=== PATIENT | female | born 1950 | race Caucasian/White ===

== ENCOUNTER 2022-03-30 18:09 | Inpatient (IN) | payer MEDICARE, OTHER ==
[~2022-03-30] VITALS: Ht 157.5 cm; Wt 71.0 kg
[2022-03-30 20:52] LABS: Hematocrit 41.5 % (36.0-46.0); Hemoglobin 14.2 g/dL (12.2-16.2); Mean Corpuscular Hemoglobin 32.8 pg (28.0-32.0); Mean Corpuscular Hgb Conc. 34.2 g/dL (32.0-36.0); Mean Corpuscular Volume 95.8 fL (80.0-100.0); Red Blood Cells 4.33 10^6/uL (4.0-5.20); Red Cell Distribution Width 12.8 % (11.8-14.3)
[2022-03-30 20:58] LABS: INR 1.14 (0.9-1.15); Partial Thromboplastin Time 29.1 sec (24.6-33.4)
[2022-03-30 20:59] LABS: White Blood Cell 37.2 10^3/uL (4.4-10.8)
[2022-03-30 21:01] LABS: Basophils % (manual) 0 (0.0-2.0); Blast Cells 0; Eosinophils % (manual) 0 (0-7); Metamyelocytes % 0; Myelocytes % 0; Promyelocytes % 0; Reactive Lymphocytes 0
[2022-03-30 21:03] LABS: Albumin 2.7 g/dL (3.4-5.0); Calcium 9.3 mg/dL (8.5-10.1); Potassium 3.3 mmol/L (3.5-5.1)
[2022-03-30 21:05] LABS: BUN/Creatinine Ratio 13.8
[2022-03-30 21:08] LABS: Bilirubin, Total 0.9 mg/dL (0.2-1.0); Total Protein 8.4 g/dL (6.4-8.2)
[2022-03-30 21:27] LABS: Band Neutrophils % (manual) 26; Lymphocytes % (manual) 4 (10.0-50.0); Monocytes % (manual) 10 (0-12)
[2022-03-30] MEDS ORDERED: VANCOMYCIN 1GM/250ML 250 ML IV ONE (21:45)
[2022-03-30] MEDS ORDERED: LACTATED RINGER'S 2,000 ML IV ONE (21:45)
[2022-03-30] MEDS ORDERED: PIPERACILLIN-TAZOB 3.375GM 100 ML IV ONE (22:15)
[2022-03-30] MEDS ORDERED: ACETAMINOPHEN 325 MG TAB PO ONE (22:15)
[2022-03-31 00:21] LABS: Urine Bacteria NONE SEEN /hpf (None Seen); Urine Blood Negative /uL (Negative); Urine Hyaline Cast FEW /lpf (0 - 2); Urine Mucus FEW (None Seen); Urine Specific Gravity 1.031 (1.001-1.035); Urine WBC 2 /hpf (0 - 5)
[2022-03-31] MEDS ORDERED: POTASSIUM CHL 20 Meq TABLET PO ONE (02:30)
[2022-03-31 03:00] LABS: BUN/Creatinine Ratio 13.2; Calcium 8.7 mg/dL (8.5-10.1); Potassium 3.6 mmol/L (3.5-5.1)
[2022-03-31] MEDS ORDERED: MORPHINE SULFATE INJ 2 MG/ml SYRG IV ONE (03:30)
[2022-03-31] MEDS ORDERED: ONDANSETRON HCL 4 MG/2 ML VIAL IM ONE (03:30)
[2022-03-31] MEDS ORDERED: HYDROmorphone HCL 2 MG/ML VL/or syr IV ONE (03:45)
[2022-03-31] MEDS ORDERED: ACETAMINOPHEN 325 MG TAB PO PRN (04:30)
[2022-03-31] MEDS ORDERED: cloNIDine HCL 0.1 MG TAB PO PRN (04:30)
[2022-03-31] MEDS ORDERED: ONDANSETRON HCL 4 MG/2 ML VIAL IV PRN (04:30)
[2022-03-31 09:00] VITALS: BP 148/73
[2022-03-31] MEDS: PANTOPRAZOLE 40 MG TAB PO SCH (09:49)
[2022-03-31] MEDS: ENOXAPARIN SOD 40 MG/0.4 ML SYRINGE SC SCH (09:50)
[2022-03-31] MEDS: ATENOLOL 50 MG TAB PO SCH ×2 (09:50→21:49)
[2022-03-31] MEDS: cefTRIAXone 1GM/50ML D5W 50 ML IV SCH (09:54)
[2022-03-31 13:00] VITALS: BP 117/67
[2022-03-31 17:00] VITALS: BP 127/75
[2022-03-31 21:30] VITALS: BP 148/71
[2022-03-31] MEDS: TEMAZEPAM 15 MG CAP PO PRN (21:49)
[2022-04-01 04:00] VITALS: BP 144/68
[2022-04-01 05:48] LABS: Basophils # (auto) 0.1 10 ^3/uL (0-0.2); Basophils % (auto) 0.3 % (0.0-2.0); Eosinophils # (auto) 0 10 ^3/uL (0-0.8); Eosinophils % (auto) 0.2 % (0.0-7.0); Hematocrit 36.4 % (36.0-46.0); Hemoglobin 12.5 g/dL (12.2-16.2); Lymphocytes # (auto) 2.4 10 ^3/uL (0.4-5.4); Lymphocytes % (auto) 10.5 % (10.0-50.0); Mean Corpuscular Hemoglobin 33.2 pg (28.0-32.0); Mean Corpuscular Hgb Conc. 34.3 g/dL (32.0-36.0); Mean Corpuscular Volume 96.7 fL (80.0-100.0); Monocytes % (auto) 8.6 % (0.0-12.0); Neutrophils # (auto) 18.6 10 ^3/uL (1.6-8.6); Neutrophils % (auto) 80.4 % (37.0-80.0); Red Blood Cells 3.76 10^6/uL (4.0-5.20); Red Cell Distribution Width 12.8 % (11.8-14.3); White Blood Cell 23.2 10^3/uL (4.4-10.8)
[2022-04-01] MEDS: cefTRIAXone 1GM/50ML D5W 50 ML IV SCH (08:27)
[2022-04-01] MEDS: ENOXAPARIN SOD 40 MG/0.4 ML SYRINGE SC SCH (08:28)
[2022-04-01] MEDS: ATENOLOL 50 MG TAB PO SCH ×2 (08:28→21:07)
[2022-04-01] MEDS: PANTOPRAZOLE 40 MG TAB PO SCH (08:37)
[2022-04-01 09:00] VITALS: BP 145/80
[2022-04-01] MEDS: HYDROcodone-ACET 5/325MG TAB PO PRN ×2 (13:14→21:10)
[2022-04-01 14:00] VITALS: BP 146/65
[2022-04-01 14:16] VITALS: BP 146/65
[2022-04-01] MEDS ORDERED: LORazepam 2MG/ML-1ML VIAL IV PRN (22:15)
[2022-04-01 23:16] VITALS: BP 148/67
[2022-04-02] MEDS: TEMAZEPAM 15 MG CAP PO PRN (01:02)
[2022-04-02 04:41] LABS: Free T4 (Free Thyroxine) 1.15 ng/dL (0.89-1.76)
[2022-04-02 04:42] LABS: Folate (Folic Acid) 10.32 ng/mL (5.38-24)
[2022-04-02 06:21] VITALS: BP 166/74
[2022-04-02] MEDS: ATENOLOL 50 MG TAB PO SCH ×2 (08:26→21:28)
[2022-04-02] MEDS: PANTOPRAZOLE 40 MG TAB PO SCH (08:26)
[2022-04-02] MEDS: ENOXAPARIN SOD 40 MG/0.4 ML SYRINGE SC SCH (08:27)
[2022-04-02] MEDS: cefTRIAXone 1GM/50ML D5W 50 ML IV SCH ×2 (08:27→16:58)
[2022-04-02 09:00] VITALS: BP 147/67
[2022-04-02 13:00] VITALS: BP 156/69
[2022-04-02 15:58] LABS: Basophils # (auto) 0 10 ^3/uL (0-0.2); Basophils % (auto) 0.3 % (0.0-2.0); Eosinophils # (auto) 0.2 10 ^3/uL (0-0.8); Eosinophils % (auto) 1.5 % (0.0-7.0); Hematocrit 37.8 % (36.0-46.0); Hemoglobin 12.7 g/dL (12.2-16.2); Lymphocytes # (auto) 2.2 10 ^3/uL (0.4-5.4); Lymphocytes % (auto) 18.6 % (10.0-50.0); Mean Corpuscular Hemoglobin 32.4 pg (28.0-32.0); Mean Corpuscular Hgb Conc. 33.6 g/dL (32.0-36.0); Mean Corpuscular Volume 96.4 fL (80.0-100.0); Monocytes # (auto) 1.1 10 ^3/uL (0-1.3); Monocytes % (auto) 9.5 % (0.0-12.0); Neutrophils # (auto) 8.3 10 ^3/uL (1.6-8.6); Neutrophils % (auto) 70.1 % (37.0-80.0); Red Blood Cells 3.92 10^6/uL (4.0-5.20); Red Cell Distribution Width 12.8 % (11.8-14.3); White Blood Cell 11.8 10^3/uL (4.4-10.8)
[2022-04-02 16:16] LABS: Albumin 2.1 g/dL (3.4-5.0); Calcium 8.4 mg/dL (8.5-10.1); Potassium 3.9 mmol/L (3.5-5.1)
[2022-04-02 16:19] LABS: BUN/Creatinine Ratio 14.7
[2022-04-02 16:21] LABS: Bilirubin, Total 0.5 mg/dL (0.2-1.0); Total Protein 7.5 g/dL (6.4-8.2)
[2022-04-02 16:36] VITALS: BP 153/67
[2022-04-02] MEDS: HYDROcodone-ACET 5/325MG TAB PO PRN (16:56)
[2022-04-02 22:00] VITALS: BP 150/68
[2022-04-03] MEDS: HYDROcodone-ACET 5/325MG TAB PO PRN (00:43)
[2022-04-03 05:00] VITALS: BP 141/75
[2022-04-03 08:41] VITALS: BP 183/115
[2022-04-03] MEDS: PANTOPRAZOLE 40 MG TAB PO SCH (10:00)
[2022-04-03] MEDS: ENOXAPARIN SOD 40 MG/0.4 ML SYRINGE SC SCH (10:00)
[2022-04-03] MEDS: ATENOLOL 50 MG TAB PO SCH (10:00)
[2022-04-03] MEDS ORDERED: ATE50T PO (10:37)
[2022-04-03] MEDS ORDERED: HYDR-4902 PO (10:37)
[2022-04-03 11:05] VITALS: BP 151/77
== END 2022-04-03 12:00 | disposition home or self-care (01) | DRG 124 ==
LOC: ER 18:09 → EDBD 18:09 → OVERFLOW 03-31 04:18 → WEST WING 03-31 08:20
PROVIDERS: ADMIT Nurse Practitioner; ATTEND Internal Medicine
DX: S02.32XA Fracture of orbital floor, left side, initial encounter for closed fracture (principal); G93.41 Metabolic encephalopathy; W18.39XA Other fall on same level, initial encounter; S00.12XA Contusion of left eyelid and periocular area, initial encounter; I10 Essential (primary) hypertension; E87.6 Hypokalemia; D72.829 Elevated white blood cell count, unspecified; S00.03XA Contusion of scalp, initial encounter; Z20.822 Contact with and (suspected) exposure to COVID-19; D64.9 Anemia, unspecified; Y93.89 Activity, other specified; Y92.89 Other specified places as the place of occurrence of the external cause; Y99.8 Other external cause status
CPT/HCPCS: 36415; 70450; 70486; 70551; 71045; 72125; 80048; 80053; 81001; 82550; 82607; 82746; 83605; 83880; 84439; 84443; 84484; 85007; 85025; 85027; 85610; 85730; 87040; 87426; 87804; 93005; 95819; 96361; 96365; 96366; 96368; 96372; 96375; 97116; 97530; 99291; G0378; J0696; J2405; J2543

== ENCOUNTER 2022-05-07 07:24 | Inpatient (IN) | payer OTHER ==
[~2022-05-07] VITALS: Ht 157.5 cm; Wt 67.5 kg
[~2022-05-07 07:24] MED LIST: ATE50T PO; HYDR-4902 PO
[2022-05-07 08:32] LABS: Urine Bacteria FEW /hpf (None Seen); Urine Blood Negative /uL (Negative); Urine Mucus FEW (None Seen); Urine Specific Gravity 1.016 (1.001-1.035); Urine WBC 82 /hpf (0 - 5)
[2022-05-07 08:52] LABS: Basophils # (auto) 0 10 ^3/uL (0-0.2); Basophils % (auto) 0.2 % (0.0-2.0); Eosinophils # (auto) 0 10 ^3/uL (0-0.8); Hematocrit 42.8 % (36.0-46.0); Hemoglobin 14.8 g/dL (12.2-16.2); Lymphocytes # (auto) 1.2 10 ^3/uL (0.4-5.4); Lymphocytes % (auto) 8.8 % (10.0-50.0); Mean Corpuscular Hemoglobin 33.3 pg (28.0-32.0); Mean Corpuscular Hgb Conc. 34.5 g/dL (32.0-36.0); Mean Corpuscular Volume 96.6 fL (80.0-100.0); Monocytes # (auto) 0.7 10 ^3/uL (0-1.3); Monocytes % (auto) 5.4 % (0.0-12.0); Neutrophils # (auto) 11.6 10 ^3/uL (1.6-8.6); Neutrophils % (auto) 85.6 % (37.0-80.0); Red Blood Cells 4.43 10^6/uL (4.0-5.20); Red Cell Distribution Width 13.4 % (11.8-14.3); White Blood Cell 13.5 10^3/uL (4.4-10.8)
[2022-05-07 09:22] LABS: Albumin 3.7 g/dL (3.4-5.0); BUN/Creatinine Ratio 17.2; Calcium 9.4 mg/dL (8.5-10.1); Potassium 3.8 mmol/L (3.5-5.1)
[2022-05-07 09:24] LABS: Bilirubin, Total 3.7 mg/dL (0.2-1.0); Total Protein 8.2 g/dL (6.4-8.2)
[2022-05-07] MEDS ORDERED: METOCLOPRAMIDE HCL 5MG/ml INJ 2ml VIAL IV ONE (10:45)
[2022-05-07] MEDS ORDERED: SODIUM CHLORIDE 0.9% 1,000 ML IV ONE (10:45)
[2022-05-07] MEDS ORDERED: KETOROLAC TROMETH 30 MG/ML 1ML VIAL IV ONE (10:45)
[2022-05-07 11:27] LABS: Magnesium 2.1 mg/dL (1.6-2.6)
[2022-05-07] MEDS ORDERED: cefTRIAXone 1GM/50ML D5W 50 ML IV ONE (12:00)
[2022-05-07] MEDS ORDERED: SODIUM CHLORIDE 0.9% 2,000 ML IV ONE (16:00)
[2022-05-08] MEDS: SODIUM CHLORIDE 0.9% 1,000 ML IV SCH ×4 (00:20→22:00)
[2022-05-08] MEDS: ATENOLOL 50 MG TAB PO SCH ×3 (00:20→21:13)
[2022-05-08] MEDS: METOCLOPRAMIDE HCL 5MG/ml INJ 2ml VIAL IV SCH ×4 (00:20→21:12)
[2022-05-08] MEDS: KETOROLAC TROMETH 30 MG/ML 1ML VIAL IV PRN ×3 (00:20→23:47)
[2022-05-08 06:13] LABS: Basophils # (auto) 0 10 ^3/uL (0-0.2); Basophils % (auto) 0.2 % (0.0-2.0); Eosinophils # (auto) 0 10 ^3/uL (0-0.8); Hematocrit 39.2 % (36.0-46.0); Hemoglobin 13.2 g/dL (12.2-16.2); Lymphocytes # (auto) 1.4 10 ^3/uL (0.4-5.4); Lymphocytes % (auto) 7.3 % (10.0-50.0); Mean Corpuscular Hemoglobin 32.7 pg (28.0-32.0); Mean Corpuscular Hgb Conc. 33.7 g/dL (32.0-36.0); Mean Corpuscular Volume 97.2 fL (80.0-100.0); Monocytes # (auto) 1.3 10 ^3/uL (0-1.3); Monocytes % (auto) 6.9 % (0.0-12.0); Neutrophils # (auto) 15.9 10 ^3/uL (1.6-8.6); Neutrophils % (auto) 85.6 % (37.0-80.0); Red Blood Cells 4.03 10^6/uL (4.0-5.20); Red Cell Distribution Width 13.6 % (11.8-14.3); White Blood Cell 18.6 10^3/uL (4.4-10.8)
[2022-05-08 06:32] LABS: BUN/Creatinine Ratio 26.6; Calcium 8.4 mg/dL (8.5-10.1); Potassium 3.6 mmol/L (3.5-5.1)
[2022-05-08 06:34] LABS: Bilirubin, Total 2.3 mg/dL (0.2-1.0); Total Protein 6.9 g/dL (6.4-8.2)
[2022-05-08] MEDS: ENOXAPARIN SOD 40 MG/0.4 ML SYRINGE SC SCH (10:12)
[2022-05-08] MEDS: cefTRIAXone 1GM/50ML D5W 50 ML IV SCH (10:12)
[2022-05-08] MEDS: hydrALAZINE HCL 20 MG/ML VL IV PRN (14:49)
[2022-05-08 15:37] VITALS: BP 147/72
[2022-05-08 17:00] VITALS: BP 148/72
[2022-05-08] MEDS: ACETAMINOPHEN 325 MG TAB PO PRN (18:45)
[2022-05-08] MEDS ORDERED: FAMO40TA7 PO (18:47)
[2022-05-08 22:00] VITALS: BP 167/88
[2022-05-09] MEDS: ACETAMINOPHEN 325 MG TAB PO PRN (03:23)
[2022-05-09] MEDS: hydrALAZINE HCL 20 MG/ML VL IV PRN (04:56)
[2022-05-09 05:00] VITALS: BP 170/72
[2022-05-09] MEDS: KETOROLAC TROMETH 30 MG/ML 1ML VIAL IV PRN ×2 (05:53→22:12)
[2022-05-09] MEDS: METOCLOPRAMIDE HCL 5MG/ml INJ 2ml VIAL IV SCH (05:53)
[2022-05-09 06:50] VITALS: BP 140/65
[2022-05-09 07:11] LABS: Basophils # (auto) 0 10 ^3/uL (0-0.2); Basophils % (auto) 0.2 % (0.0-2.0); Eosinophils # (auto) 0 10 ^3/uL (0-0.8); Eosinophils % (auto) 0.1 % (0.0-7.0); Hematocrit 37.3 % (36.0-46.0); Hemoglobin 12.8 g/dL (12.2-16.2); Lymphocytes # (auto) 1.9 10 ^3/uL (0.4-5.4); Mean Corpuscular Hemoglobin 33.3 pg (28.0-32.0); Mean Corpuscular Hgb Conc. 34.3 g/dL (32.0-36.0); Mean Corpuscular Volume 97.2 fL (80.0-100.0); Monocytes # (auto) 1.2 10 ^3/uL (0-1.3); Monocytes % (auto) 6.6 % (0.0-12.0); Neutrophils # (auto) 15.7 10 ^3/uL (1.6-8.6); Neutrophils % (auto) 83.1 % (37.0-80.0); Red Blood Cells 3.83 10^6/uL (4.0-5.20); Red Cell Distribution Width 13.6 % (11.8-14.3); White Blood Cell 18.9 10^3/uL (4.4-10.8)
[2022-05-09 07:13] LABS: Potassium 3.3 mmol/L (3.5-5.1)
[2022-05-09 07:17] LABS: Albumin 2.6 g/dL (3.4-5.0); BUN/Creatinine Ratio 41.9; Calcium 8.2 mg/dL (8.5-10.1)
[2022-05-09 07:20] LABS: Total Protein 6.9 g/dL (6.4-8.2)
[2022-05-09] MEDS: SODIUM CHLORIDE 0.9% 1,000 ML IV SCH ×2 (08:00→18:25)
[2022-05-09 09:05] VITALS: BP 130/61
[2022-05-09] MEDS: ENOXAPARIN SOD 40 MG/0.4 ML SYRINGE SC SCH (09:36)
[2022-05-09] MEDS: cefTRIAXone 1GM/50ML D5W 50 ML IV SCH (09:37)
[2022-05-09] MEDS: ATENOLOL 50 MG TAB PO SCH ×2 (09:37→21:33)
[2022-05-09] MEDS ORDERED: DILT1CAP PO (10:48)
[2022-05-09] MEDS ORDERED: DILT30TA PO (10:49)
[2022-05-09 13:00] VITALS: BP 126/75
[2022-05-09] MEDS ORDERED: METOCLOPRAMIDE HCL 5MG/ml INJ 2ml VIAL IV PRN (13:15)
[2022-05-09] MEDS ORDERED: FAMOTIDINE 20 MG TAB PO ONE (15:00)
[2022-05-09 17:00] VITALS: BP 164/80
[2022-05-09] MEDS: FAMOTIDINE 20 MG TAB PO SCH (21:33)
[2022-05-09 22:00] VITALS: BP 168/69
[2022-05-10] VITALS (9 sets, daily range): BP systolic 124–173; BP diastolic 61–91
[2022-05-10 06:33] LABS: Basophils # (auto) 0 10 ^3/uL (0-0.2); Basophils % (auto) 0.2 % (0.0-2.0); Eosinophils # (auto) 0 10 ^3/uL (0-0.8); Eosinophils % (auto) 0.4 % (0.0-7.0); Hematocrit 34.4 % (36.0-46.0); Hemoglobin 11.8 g/dL (12.2-16.2); Lymphocytes # (auto) 1.1 10 ^3/uL (0.4-5.4); Mean Corpuscular Hgb Conc. 34.3 g/dL (32.0-36.0); Mean Corpuscular Volume 96.1 fL (80.0-100.0); Monocytes # (auto) 1.4 10 ^3/uL (0-1.3); Monocytes % (auto) 10.3 % (0.0-12.0); Neutrophils # (auto) 10.9 10 ^3/uL (1.6-8.6); Neutrophils % (auto) 81.1 % (37.0-80.0); Red Blood Cells 3.58 10^6/uL (4.0-5.20); Red Cell Distribution Width 13.2 % (11.8-14.3); White Blood Cell 13.5 10^3/uL (4.4-10.8)
[2022-05-10] MEDS: SODIUM CHLORIDE 0.9% 1,000 ML IV SCH ×2 (06:43→07:43)
[2022-05-10 07:01] LABS: Potassium 3.4 mmol/L (3.5-5.1)
[2022-05-10 07:13] LABS: Albumin 2.6 g/dL (3.4-5.0); BUN/Creatinine Ratio 30.2; Bilirubin, Total 1.6 mg/dL (0.2-1.0); Calcium 8.2 mg/dL (8.5-10.1); Total Protein 6.2 g/dL (6.4-8.2)
[2022-05-10] MEDS: hydrALAZINE HCL 20 MG/ML VL IV PRN (08:44)
[2022-05-10] MEDS: cefTRIAXone 1GM/50ML D5W 50 ML IV SCH (08:45)
[2022-05-10] MEDS: ATENOLOL 50 MG TAB PO SCH ×2 (08:45→21:30)
[2022-05-10] MEDS: FAMOTIDINE 20 MG TAB PO SCH ×2 (08:45→21:30)
[2022-05-10] MEDS: ENOXAPARIN SOD 40 MG/0.4 ML SYRINGE SC SCH (08:45)
[2022-05-10] MEDS: ACETAMINOPHEN 325 MG TAB PO PRN ×2 (10:32→16:53)
[2022-05-10] MEDS ORDERED: OMNIPAQUE ORAL SOLN 500ml 12mg/ml PO ONE (10:56)
[2022-05-10] MEDS ORDERED: IOHEXOL 300 MG/ML 100ML BOTTLE IJ ONE (14:03)
[2022-05-10] MEDS: LISINOPRIL 5 MG TAB PO SCH (21:30)
[2022-05-11 05:00] VITALS: BP 156/77
[2022-05-11] MEDS: hydrALAZINE HCL 20 MG/ML VL IV PRN (05:46)
[2022-05-11] MEDS: ACETAMINOPHEN 325 MG TAB PO PRN ×2 (05:46→14:05)
[2022-05-11] MEDS: cefTRIAXone 1GM/50ML D5W 50 ML IV SCH (08:42)
[2022-05-11] MEDS: FAMOTIDINE 20 MG TAB PO SCH (08:42)
[2022-05-11] MEDS: ATENOLOL 50 MG TAB PO SCH ×2 (08:43→22:38)
[2022-05-11] MEDS: LISINOPRIL 5 MG TAB PO SCH ×2 (08:43→22:39)
[2022-05-11] MEDS: ENOXAPARIN SOD 40 MG/0.4 ML SYRINGE SC SCH (08:44)
[2022-05-11] MEDS: KETOROLAC TROMETH 30 MG/ML 1ML VIAL IV PRN ×2 (08:45→18:46)
[2022-05-11 09:00] VITALS: BP 109/50
[2022-05-11] MEDS: SODIUM CHLORIDE 0.9% 1,000 ML IV SCH ×2 (10:00)
[2022-05-11] MEDS: PANTOPRAZOLE 40 MG TAB PO SCH ×2 (11:52→22:37)
[2022-05-11] MEDS: SUCRALFATE 1 GM/10 ML ORAL SUSP PO SCH ×3 (11:52→22:37)
[2022-05-11 13:00] VITALS: BP 109/50
[2022-05-11 17:00] VITALS: BP 128/59
[2022-05-11 22:00] VITALS: BP 128/59
[2022-05-12] MEDS: SODIUM CHLORIDE 0.9% 1,000 ML IV SCH ×2 (01:02→06:00)
[2022-05-12 05:00] VITALS: BP 134/53
[2022-05-12] MEDS: KETOROLAC TROMETH 30 MG/ML 1ML VIAL IV PRN (05:51)
[2022-05-12] MEDS: SUCRALFATE 1 GM/10 ML ORAL SUSP PO SCH ×4 (06:00→21:22)
[2022-05-12 06:22] LABS: Basophils # (auto) 0 10 ^3/uL (0-0.2); Basophils % (auto) 0.3 % (0.0-2.0); Eosinophils # (auto) 0.1 10 ^3/uL (0-0.8); Eosinophils % (auto) 0.6 % (0.0-7.0); Hematocrit 31.2 % (36.0-46.0); Hemoglobin 10.7 g/dL (12.2-16.2); Lymphocytes # (auto) 1.1 10 ^3/uL (0.4-5.4); Lymphocytes % (auto) 11.5 % (10.0-50.0); Mean Corpuscular Hemoglobin 32.9 pg (28.0-32.0); Mean Corpuscular Hgb Conc. 34.1 g/dL (32.0-36.0); Mean Corpuscular Volume 96.5 fL (80.0-100.0); Monocytes # (auto) 1.3 10 ^3/uL (0-1.3); Monocytes % (auto) 13.6 % (0.0-12.0); Neutrophils # (auto) 7.2 10 ^3/uL (1.6-8.6); Red Blood Cells 3.23 10^6/uL (4.0-5.20); Red Cell Distribution Width 13.4 % (11.8-14.3); White Blood Cell 9.7 10^3/uL (4.4-10.8)
[2022-05-12 06:36] LABS: INR 1.03 (0.9-1.15); Partial Thromboplastin Time 29.1 sec (24.6-33.4)
[2022-05-12 06:55] LABS: BUN/Creatinine Ratio 36.7; Bilirubin, Total 0.7 mg/dL (0.2-1.0); Calcium 8.5 mg/dL (8.5-10.1); Total Protein 6.1 g/dL (6.4-8.2)
[2022-05-12 07:11] LABS: Potassium 2.9 mmol/L (3.5-5.1)
[2022-05-12 09:00] VITALS: BP 132/57
[2022-05-12] MEDS ORDERED: POTASSIUM CHL 20 Meq TABLET PO ONE (09:00)
[2022-05-12] MEDS ORDERED: POTASSIUM CHLORIDE 20 MEQ, LIDOCAINE 1% (LOCAL ANESTH.) 2 ML in SODIUM CHL 0.9% 100 ML IV ONE (09:00)
[2022-05-12] MEDS: cefTRIAXone 1GM/50ML D5W 50 ML IV SCH (09:12)
[2022-05-12] MEDS: ATENOLOL 50 MG TAB PO SCH ×2 (09:13→21:22)
[2022-05-12] MEDS: PANTOPRAZOLE 40 MG TAB PO SCH ×2 (09:13→21:22)
[2022-05-12] MEDS: LISINOPRIL 5 MG TAB PO SCH ×2 (09:14→21:22)
[2022-05-12] MEDS: ENOXAPARIN SOD 40 MG/0.4 ML SYRINGE SC SCH (09:14)
[2022-05-12 13:00] VITALS: BP 151/67
[2022-05-12 17:01] VITALS: BP 146/67
[2022-05-12 17:33] LABS: Magnesium 2.1 mg/dL (1.6-2.6); Potassium 3.8 mmol/L (3.5-5.1)
[2022-05-12 22:00] VITALS: BP 132/56
[2022-05-13 05:00] VITALS: BP 149/73
[2022-05-13] MEDS: SUCRALFATE 1 GM/10 ML ORAL SUSP PO SCH ×2 (06:25→11:21)
[2022-05-13 08:00] VITALS: BP 140/61
[2022-05-13] MEDS: PANTOPRAZOLE 40 MG TAB PO SCH (09:10)
[2022-05-13] MEDS: ATENOLOL 50 MG TAB PO SCH (09:10)
[2022-05-13] MEDS: LISINOPRIL 5 MG TAB PO SCH (09:10)
[2022-05-13] MEDS: ENOXAPARIN SOD 40 MG/0.4 ML SYRINGE SC SCH (09:11)
[2022-05-13 09:51] VITALS: BP 140/61
[2022-05-13 13:29] VITALS: BP 131/58
[2022-05-13] MEDS ORDERED: PANT40T PO (13:50)
[2022-05-13 14:06] VITALS: BP 131/58
== END 2022-05-13 15:00 | disposition home or self-care (01) | DRG 444 ==
LOC: ER 07:24 → OVERFLOW 15:52 → EAST 05-08 15:24
PROVIDERS: ADMIT Nurse Practitioner Family; ATTEND Hospitalist
DX: K80.00 Calculus of gallbladder with acute cholecystitis without obstruction (principal); K85.10 Biliary acute pancreatitis without necrosis or infection; N39.0 Urinary tract infection, site not specified; R73.9 Hyperglycemia, unspecified; I10 Essential (primary) hypertension; K21.9 Gastro-esophageal reflux disease without esophagitis; Z20.822 Contact with and (suspected) exposure to COVID-19; R74.01 Elevation of levels of liver transaminase levels; D72.829 Elevated white blood cell count, unspecified; Z88.5 Allergy status to narcotic agent; Z79.899 Other long term (current) drug therapy
CPT/HCPCS: 36415; 71046; 74177; 74181; 76705; 80053; 81001; 82150; 83036; 83690; 83735; 84132; 84484; 85025; 85610; 85730; 87040; 87086; 87088; 87186; 87426; 93005; 93306; 96365; 96375; G0378; J0696; J1885; J2001

== ENCOUNTER 2024-10-18 01:53 | Inpatient (IN) | payer OTHER ==
[~2024-10-18] VITALS: Ht 157.5 cm; Wt 72.4 kg
[~2024-10-18 01:53] MED LIST changes: +DILT1CAP PO; +PANT40T PO
--- NOTE | 2024-10-18 02:27 | ED.PDOC ---
History of Present Illness HPI Comments 74 year old Female presents to the ED for the c/c of a Mechanical Fall injury. Pt states she was sleeping when she fell out of her bed onto her carpeted floor. Pt notes that she landed on her back and Left shoulder. Tenderness to her Left Trapezius area. Pt is noted to have been Hypertensive with a BP of 209/95 during Triage assessment, pt is currently Sat on 88% O2 and was given 2L O2 as result. No other associated symptoms, modifiers, recent injuries or sick contacts present at this time. Chief Complaint: Fall Injury Time Seen by MD: 02:20 Primary Care Provider: DIONISIO Reviewed Notes: Nurses Notes, Medications, Allergies Allergies: Coded Allergies: Morphine (Verified Allergy, Unknown, 03/31/22) Home Meds Active Scripts Tramadol HCl (Tramadol HCl) 50 Mg Tab, 50 MG PO Q8HP PRN for 5 Days, #15 TAB Prov:DIANNA LANCE LEAD EMBEDDED SOFTWARE ENGINEER 10/19/24 Pantoprazole Sodium Sesquihydr (Pantoprazole Sodium) 40 Mg Tab, 40 MG PO DAILY, #60 TAB Prov:RICHARD MATA MD 05/13/22 Hydrocodone-Acetaminophen (Hydrocodone Bitartrate/AC 5-325 mg) 1 Tab Tab, 1 TAB PO Q4HP PRN, #30 TAB Prov:BETH MCKINLEY MD 04/03/22 Atenolol (TENORMIN TABLET) 50 Mg Tb, 50 MG PO BID, #60 TAB 1 Refill Prov:BETH MCKINLEY MD 04/03/22 Reported Medications Diltiazem HCl Extended Release (Tiazac) 300 Mg Cap, 300 MG PO DAILY, CAP 05/09/22 Information Source: Patient Mode of Arrival: Ambulatory Severity: Moderate Timing: Hours Duration: Since onset, Hours Prehospital treatment: None Vital Signs Vital Signs Date Time Temp Pulse Resp B/P (MAP) Pulse Ox O2 Delivery O2 Flow Rate FiO2 10/18/24 06:37 98.2 70 20 136/85 (102) 96 98.2 10/18/24 05:32 Nasal Cannula* 2 28 Physical Exam General: Awake, alert and oriented. No acute distress. Pt is noted to be hard of hearing and a poor historian Skin: Skin in warm, dry and intact. Appropriate color for ethnicity. HEENT: The head is normocephalic and atraumatic. Conjunctivae are clear without exudates or hemorrhage. Sclera is non-icteric. EOM are intact. No signs of nystagmus. Eyelids are normal in appearance without swelling or lesions. Oral mucosa is pink and moist Neck: The neck is supple with normal range of motion. No JVD. Cardiac: Heart rate and rhythm are normal. No murmurs, gallops, or rubs are auscultated. Hypertensive at 209/95 during triage assessment Respiratory: SAT 88% room O2 and was given 2L O2 as result. Lung sounds are clear in all lobes bilaterally without rales, rhonchi, or wheezes. Abdominal: Abdomen is soft, non-tender without distention, guarding or rigidity. Bowel sounds are present and normoactive in all four quadrants. Extremities: Tenderness to Left shoulder and Trapezius area upon palpitation Neurological: The patient is awake, alert and oriented to person, place, and time with normal speech. Speech is clear. There is no facial asymmetry. Psychiatric: Appropriate mood and affect. Good judgement and insight. Review of Systems: REVIEW OF SYSTEMS: No fever, no chills, or fatigue HEENT: No sore throat, no earache, no congestion, no neck pain. Cardiac: No chest pain. No palpitations. Lungs: No shortness of breath, no cough. GI: No nausea, no vomiting, no diarrhea, no constipation, no abdominal pain : No dysuria, frequency, or urgency. No hematuria. Musculoskeletal: No joint swelling, no extremity edema. Left shoulder pain, and back pain Skin: No rash, no itching. 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 Was a procedure done?: No Differential Dx Considerations may include: But are not limited to Pneumonia, pulmonary embolism, pneumothorax, acute coronary syndrome, CHF, shoulder dislocation, clavicle fracture, musculoskeletal pain, other X-Ray, Labs, Meds, VS Vital Signs Date Time Temp Pulse Resp B/P (MAP) Pulse Ox O2 Delivery O2 Flow Rate FiO2 10/18/24 06:37 98.2 70 20 136/85 (102) 96 98.2 10/18/24 06:36 98.2 10/18/24 06:35 136/85 10/18/24 05:32 73 18 96 Nasal Cannula* 2 28 10/18/24 05:32 97.8 73 18 165/96 (119) 98 97.8 10/18/24 05:20 165/96 10/18/24 03:02 82 10/18/24 02:42 18 97 Nasal Cannula* 2 10/18/24 02:09 84 10/18/24 02:05 97.7 73 18 209/95 (133) 91 97.7 Lab Test 10/18/24 05:17 10/18/24 03:39 10/18/24 02:30 Range/Units Troponin I High Sensitivity 3 L 3 L 3 L </=34 ng/L White Blood Count 8.1 4.4-10.8 10^3/uL Red Blood Count 4.42 4.0-5.20 10^6/uL Hemoglobin 15.3 12.2-16.2 g/dL Hematocrit 43.8 36.0-46.0 % Mean Corpuscular Volume 99.1 80.0-100.0 fL Mean Corpuscular Hemoglobin 34.6 H 28.0-32.0 pg Mean Corpuscular Hemoglobin Concent 35.0 32.0-36.0 g/dL Red Cell Distribution Width 14.4 H 11.8-14.3 % Platelet Count 214 140-450 10^3/uL Mean Platelet Volume 7.8 6.9-10.8 fL Neutrophils (%) (Auto) 54.8 37.0-80.0 % Lymphocytes (%) (Auto) 33.2 10.0-50.0 % Monocytes (%) (Auto) 9.8 0.0-12.0 % Eosinophils (%) (Auto) 1.4 0.0-7.0 % Basophils (%) (Auto) 0.8 0.0-2.0 % Neutrophils # (Auto) 4.4 1.6-8.6 10 ^3/uL Lymphocytes # (Auto) 2.7 0.4-5.4 10 ^3/uL Monocytes # (Auto) 0.8 0-1.3 10 ^3/uL Eosinophils # (Auto) 0.1 0-0.8 10 ^3/uL Basophils # (Auto) 0.1 0-0.2 10 ^3/uL Nucleated Red Blood Cells 0.1 % D-Dimer, Quantitative 1.53 H 0.0-0.49 mg/L FEU Blood Gas Specimen Type Arterial Blood Gas Sample Site Right radial Blood Gas Patient Temperature 37.0 Arterial Blood Date Drawn [id number] Arterial Blood pH 7.481 H 7.350-7.450 Arterial Blood Partial Pressure CO2 27.9 L 32.0-45.0 mmHg Arterial Blood Partial Pressure O2 94.1 83.0-108.0 mmHg Arterial Blood HCO3 20.4 L 21.0-28.0 mmol/L Arterial Blood Oxygen Saturation 96.9 94.0-98.0 % Arterial Blood Base Excess -1.6 -2.0-3.0 mmol/L Arterial Blood Oxyhemoglobin 95.1 94.0-98.0 % Arterial Blood Carboxyhemoglobin 1.5 0.5-1.5 % Arterial Blood Methemoglobin 0.4 0.0-1.5 % Seth Test Modified Blood Gas Total Hemoglobin 15.40 12.0-16.0 g/dL Blood Gas Liter Flow 2.00 Blood Gas Modality Nasal cannula FiO2 % 28.0 Sodium Level 139 136-145 mmol/L Potassium Level 4.1 3.5-5.1 mmol/L Chloride Level 106 98-107 mmol/L Carbon Dioxide Level 22 20-31 mmol/L Anion Gap 11 5-15 Blood Urea Nitrogen 14 9-23 mg/dL Creatinine 0.97 0.550-1.02 mg/dL Glomerular Filtration Rate Calc 61 >90 mL/min BUN/Creatinine Ratio 14.4 10.0-20.0 Serum Glucose 97 74-106 mg/dL Calcium Level 9.6 8.7-10.4 mg/dL B-Type Natriuretic Peptide 247.57 0-100 pg/mL Plasma/Serum Blood Alcohol < 3.0 <10 mg/dL PATIENT: ENRICO AKHTAR ACCT: [id number] UNIT: [id number] : 1950 LOC: ER ROOM / BED: / AGE / SEX: 74 / F ADM STATUS: REG ER SERVICE 0220 ORDERING PHYSICIAN: CRISTOBAL FRANKEL MD PROCEDURE(s): CXR1 - CHEST XRAY 1 VIEW REASON: Hypoxia ORDER NUMBER(s): [id number], ACCESSION NUMBER(s): [id number] CHEST RADIOGRAPH Indication: Hypoxia Technique: Single frontal view of the chest was obtained COMPARISON: CXR1 on DOS: 03/30/22 FINDINGS: Lines and Tubes: None Lungs: Clear Pleura: No effusion. No pneumothorax. Cardiomediastinal contours: Unremarkable Bones: Unremarkable IMPRESSION: 1. No acute disease. PATIENT: ENRICO AKHTAR ACCT: [id number] UNIT: [id number] : 1950 LOC: ER ROOM / BED: / AGE / SEX: 74 / F ADM STATUS: REG ER SERVICE 9 ORDERING PHYSICIAN: CRISTOBAL FRANKEL MD PROCEDURE(s): LSHD2 - L SHOULDER 2+ VIEW XRAY REASON: Left shoulder pain ORDER NUMBER(s): [id number], ACCESSION NUMBER(s): [id number] EXAM: XY L SHOULDER 2+ VIEW XRAY CLINICAL INDICATION: Left shoulder pain TECHNIQUE: XY L SHOULDER 2+ VIEW XRAY Comparison: None FINDINGS/IMPRESSION: Minimally displaced distal left clavicular fracture. Time of 1ST Reevaluation: 02:51 Reevaluation 1ST: Unchanged Patient Education/Counseling: Need For Follow Up Family Education/Counseling: No Family Present Departure 1 Departure Time of Disposition: 04:58 Impression: Primary Impression: Hypoxia Additional Impressions: Respiratory alkalosis Clavicle fracture Disposition: ADMITTED INPATIENT Condition: Stable e-Prescriptions Tramadol HCl (Tramadol HCl) 50 Mg Tab 50 MG PO Q8HP PRN for 5 Days, #15 TAB Prov: DIANNA LANCE LEAD EMBEDDED SOFTWARE ENGINEER 10/19/24 Comments 74-year-old female who presented to the emergency department with fall injury. Patient was hypoxic on arrival to the ED. shoulder x-ray shows minimally displaced left clavicular fracture. Patient's D-dimer elevated. Critical Care Note Critical Care Time?: No Stability Stability form required: No Heart Score Heart Score: Heart Score Response (Comments) Value History N/A 0 EKG N/A 0 Age N/A 0 Risk Factors N/A 0 Troponin N/A 0 Total 0 I personally scribed for MINTARoadster,CHAILLE A MD ([email or web address]) on 10/18/24 at 02:27. Electronically submitted by Keyon Elizondo ([email or web address]). I personally scribed for CRISTOBAL FRANKEL MD ([email or web address]) on 10/18/24 at 03:54. Electronically submitted by Keyon Elizondo ([email or web address]). I personally scribed for CRISTOBAL FRANKEL MD ([email or web address]) on 10/18/24 at 04:28. Electronically submitted by Keyon Elizondo ([email or web address]). CRISTOBAL FRANKEL MD Oct 18, 2024 02:27
[2024-10-18] MEDS: ALBUTEROL SULF 2.5 MG/0.5ML(0.5%) NEB SOLN NEB ONE (02:41)
[2024-10-18 02:47] LABS: Base Excess -1.6 mmol/L (-2.0-3.0)
[2024-10-18 03:00] LABS: Basophils # (auto) 0.1 10 ^3/uL (0-0.2); Eosinophils # (auto) 0.1 10 ^3/uL (0-0.8); Hemoglobin 15.3 g/dL (12.2-16.2); Nucleated Red Blood Cells % 0.1 %
[2024-10-18 03:02] LABS: Basophils % (auto) 0.8 % (0.0-2.0); Eosinophils % (auto) 1.4 % (0.0-7.0); Hematocrit 43.8 % (36.0-46.0); Lymphocytes # (auto) 2.7 10 ^3/uL (0.4-5.4); Lymphocytes % (auto) 33.2 % (10.0-50.0); Mean Corpuscular Hemoglobin 34.6 pg (28.0-32.0); Mean Corpuscular Volume 99.1 fL (80.0-100.0); Monocytes # (auto) 0.8 10 ^3/uL (0-1.3); Monocytes % (auto) 9.8 % (0.0-12.0); Neutrophils # (auto) 4.4 10 ^3/uL (1.6-8.6); Neutrophils % (auto) 54.8 % (37.0-80.0); Platelet Count (auto) 214 10^3/uL (140-450); Red Blood Cells 4.42 10^6/uL (4.0-5.20); Red Cell Distribution Width 14.4 % (11.8-14.3); White Blood Cell 8.1 10^3/uL (4.4-10.8)
--- NOTE | 2024-10-18 03:04 | ECG ---
[facility] Test Date: 2024-10-18 Test Time: 03:02:15 Pat Name: ENRICO AKHTAR Department: ED Room: 0215 Gender: F Piano Tuner: BUNNY : 1950 Requested By: CRISTOBAL FRANKEL Order Number: [id number] Reading MD: Esteban Griffith Measurements Intervals Dike Rate: 82 P: 87 [place]: 157 QRS: 64 QRSD: 82 T: 50 QT: 381 QTc: 445 Interpretive Statements Sinus rhythm Electronically Signed On 10-19-2024 21:07:17 PDT by Esteban Griffith Please click the below link to view image of tracing.
[2024-10-18 03:09] LABS: Chloride 106 mmol/L (98-107); Potassium 4.1 mmol/L (3.5-5.1); Sodium 139 mmol/L (136-145)
[2024-10-18 03:10] LABS: Calcium 9.6 mg/dL (8.7-10.4)
[2024-10-18 03:15] LABS: BUN/Creatinine Ratio 14.4 (10.0-20.0); Blood Urea Nitrogen 14 mg/dL (9-23); Glucose 97 mg/dL (74-106)
--- NOTE | 2024-10-18 03:34 | DVH ---
CHEST RADIOGRAPH Indication: Hypoxia Technique: Single frontal view of the chest was obtained COMPARISON: CXR1 on DOS: 03/30/22 FINDINGS: Lines and Tubes: None Lungs: Clear Pleura: No effusion. No pneumothorax. Cardiomediastinal contours: Unremarkable Bones: Unremarkable IMPRESSION: 1. No acute disease.
--- NOTE | 2024-10-18 03:50 | DVH ---
EXAM: XY L SHOULDER 2+ VIEW XRAY CLINICAL INDICATION: Left shoulder pain TECHNIQUE: XY L SHOULDER 2+ VIEW XRAY Comparison: None FINDINGS/IMPRESSION: Minimally displaced distal left clavicular fracture.
[2024-10-18] MEDS: IOHEXOL 350 MG/ML 100ML IJ ONE (04:55)
[2024-10-18] MEDS: cloNIDine HCL 0.1 MG TAB PO ONE (05:20)
[2024-10-18] MEDS: ACETAMINOPHEN 325 MG TAB PO ONE (05:20)
[2024-10-18] MEDS: SODIUM CHLORIDE 0.9% 1,000 ML IV ONE (05:22)
[2024-10-18 05:32] VITALS: PULSE 73; RESP 18; O2SAT 96
[2024-10-18 06:16] LABS: Blood Alcohol < 3.0 mg/dL (<10)
[2024-10-18 06:17] LABS: Anion Gap 11 (5-15); Carbon Dioxide 22 mmol/L (20-31)
--- NOTE | 2024-10-18 07:55 | DVH ---
CTA Chest with intravenous contrast INDICATION: Rule out PE. COMPARISON: Chest radiograph performed on 10/18/2024. TECHNIQUE: Multidetector spiral CTA of the chest was performed of the chest with 100 cc of omnipaque 3 intravenous contrast. PULMONARY ANGIOGRAPHY PROTOCOL was utilized using a bolus-tracking technique centered on the main pulmonary artery. Coronal and sagittal multiplanar and MIP reformats were perfor med. Radiation Dose : 1. Chest: CTDI volume is 5.92 mGy. Dose-length product is 766.95 mGy*cm The dose indicators for CT are the volume Computed Tomography (CT) Dose Index (CTDIvol) and the Dose Length Product (DLP), and are measured in units of mGy and mGy-cm, respectively. These indicators are not patient dose, but values generated from the CT scanner acquisition factors. The report includes radiation exposure data for exposures received during this examination. FINDINGS: Pulmonary artery: The patient has been scanned with both arms at the patient's side, which causes flip m hardening artifact that limits evaluation of the segmental and subsegmental branches of the pulmona ry arteries. There is no main or lobar pulmonary embolism. Remaining branches are not evaluated as de scribed Lower neck: Unremarkable thyroid. Lungs: No focal airspace disease. Central airways: Patent. Pleura: No pneumothorax. No pleural effusions. Heart/Vascular Structures: The heart is enlarged. There are coronary artery calcifications. No peric ardial effusion. Thoracic aorta is normal in caliber. No aneurysm or dissection. Lymph Nodes: Right hilar lymph node is enlarged measuring 1.7 cm. Left hilar lymph node is enlarged measuring 1.3 cm. Esophagus: Grossly unremarkable. Musculoskeletal: Comminuted left distal clavicle fracture. Elevated distal clavicle compared to the a cromion. Soft tissue swelling surrounding the left shoulder. Severe anterior wedge compression defor mity status post fixation from T12-L2. Body wall: Unremarkable. Upper abdomen: Unremarkable. IMPRESSION: 1. Limited study due to beam hardening artifact. No main or lobar pulmonary embolism. 2. Cardiomegaly. Coronary artery calcifications. 3. Comminuted acute appearing distal left clavicular fracture offset of the AC joint suspicious for A C joint ligament injury. Regional soft tissue swelling about the left shoulder.
[2024-10-18] MEDS ORDERED: DOCUSATE SOD 100 MG CAP PO PRN (08:15)
[2024-10-18] MEDS ORDERED: HYDROcodone-ACET 5/325MG TAB PO PRN (08:15)
[2024-10-18] MEDS ORDERED: ONDANSETRON HCL 4 MG/2 ML VIAL IV PRN (08:15)
--- NOTE | 2024-10-18 08:18 | DVH ---
Bilateral lower extremity venous duplex Clinical History: SOB, probable PE Comparison: None Findings: Duplex Doppler evaluation of the deep venous systems of both lower extremities from the common femora l veins to the popliteal veins including color Doppler and spectral/pulsed waveform analysis was perf ormed. RIGHT SIDE: The common femoral vein demonstrates appropriate compressibility and waveform variability. There is compressibility/patency of the great saphenous vein at the proximal thigh. The femoral vein demonstrates appropriate compressibility and waveform variability. The deep femoral vein demonstrates appropriate compressibility and waveform variability. The popliteal vein demonstrates appropriate compressibility and waveform variability. There is normal compressibility at the tibioperoneal trunk. LEFT SIDE: The common femoral vein demonstrates appropriate compressibility and waveform variability. There is compressibility/patency of the great saphenous vein at the proximal thigh. The femoral vein demonstrates appropriate compressibility and waveform variability. The deep femoral vein demonstrates appropriate compressibility and waveform variability. The popliteal vein demonstrates appropriate compressibility and waveform variability. There is normal compressibility at the tibioperoneal trunk. IMPRESSION: 1. No right or left femoropopliteal venous thrombosis. 2. If clinical concern/symptoms persist or worsen, short-interval follow-up study is suggested.
[2024-10-18 08:20] VITALS: PULSE 68; PULSE 73; RESP 18; O2SAT 94; O2SAT 96
[2024-10-18 09:41] LABS: Urine Bacteria None Seen /hpf (None Seen)
--- NOTE | 2024-10-18 09:44 | DVHHP2 ---
History of Present Illness Reason for Visit: Fall History of Present Illness Jamison Alexander is a 74-year-old female with past medical history of hypertension, who came to the hospital due to falling out of her bed while asleep. She states she wake up when she hit the floor. She called for her spouse, he helped her off the floor and brought her to the hospital. While in the ER she was found to be hypoxic with an elevated D-dimer. Patient denies cough, or chest pain, does state she gets short of breath with activity. Cardiovascular: HTN Past Surgical History: Other (back surgery, jaw surgery) Smoke: No ALCOHOL: occassional Lives: with Family Domestic Violence: Neg Review of Systems Constitutional: No: Fever, Chills, Sweats, Weakness, Malaise, Other Eyes: No: Pain, Vision change, Conjunctivae inflammation, Eyelid inflammation, Other, Redness ENT: No: Ear pain, Ear discharge, Nose pain, Nose discharge, Nose congestion, Mouth pain, Mouth swelling, Throat pain, Throat swelling, Other Respiratory: No: Cough, Dry, Shortness of breath, SOB with excertion, Wheezing, Hemoptysis, Pleuritic Pain, Sputum, Wheezing, Other Cardiovascular: No: Chest Pain, Palpitations, Orthopnea, Paroxysmal Noc. Dyspnea, Edema, Lt Headedness, Other Gastrointestinal: No: Nausea, Vomiting, Abdominal Pain, Diarrhea, Constipation, Melena, Hematochezia, Other Genitourinary: No Dysuria, No Frequency, No Incontinence, No Hematuria, No Retention, No Other Musculoskeletal: arm pain (left arm/shoulder); No: other, neck pain, shoulder pain, back pain, hand pain, leg pain, foot pain Skin: No: Rash, Lesions, Jaundice, Bruising, Other Neurological: No: Weakness, Numbness, Incoordination, Change in speech, Confusion, Seizures, Other Allergies: Coded Allergies: Morphine (Verified Allergy, Unknown, 03/31/22) Medications Current Medications Medications Dose Ordered Sig/Alessio Route Start Time Stop Time Status Last Admin Dose Admin Patient Own Medication 50 mg BID PO 10/18/24 10:00 UNV Atenolol 50 mg BID PO 10/18/24 10:00 Exam Vital Signs Vital Signs Date Time Temp Pulse Resp B/P (MAP) Pulse Ox O2 Delivery O2 Flow Rate FiO2 10/18/24 06:37 98.2 70 20 136/85 (102) 96 98.2 10/18/24 05:32 Nasal Cannula* 2 28 General Appearance: Alert, Oriented X3, Cooperative, mild distress HEENT: Atraumatic, PERRLA, Mucous membr. moist/pink Respiratory: Clear to auscultation, Normal air movement Cardiovascular: Regular rate, Normal S1, Normal S2 Abdominal: Normal bowel sounds, Soft, No tenderness, No hepatospenomegaly Extremities: No clubbing, No cyanosis, Normal pulses, Other (left shoulder swelling) Skin: No rashes, No significant lesion Neuro: Normal gait, Normal speech, Strength at 5/5 X4 ext, Normal tone Psych/Mental Status: Mental status NL, Mood NL Labs/Xrays Labs Test 10/18/24 05:17 10/18/24 02:30 Range/Units Troponin I High Sensitivity 3 L </=34 ng/L White Blood Count 8.1 4.4-10.8 10^3/uL Red Blood Count 4.42 4.0-5.20 10^6/uL Hemoglobin 15.3 12.2-16.2 g/dL Hematocrit 43.8 36.0-46.0 % Mean Corpuscular Volume 99.1 80.0-100.0 fL Mean Corpuscular Hemoglobin 34.6 H 28.0-32.0 pg Mean Corpuscular Hemoglobin Concent 35.0 32.0-36.0 g/dL Red Cell Distribution Width 14.4 H 11.8-14.3 % Platelet Count 214 140-450 10^3/uL Mean Platelet Volume 7.8 6.9-10.8 fL Neutrophils (%) (Auto) 54.8 37.0-80.0 % Lymphocytes (%) (Auto) 33.2 10.0-50.0 % Monocytes (%) (Auto) 9.8 0.0-12.0 % Eosinophils (%) (Auto) 1.4 0.0-7.0 % Basophils (%) (Auto) 0.8 0.0-2.0 % Neutrophils # (Auto) 4.4 1.6-8.6 10 ^3/uL Lymphocytes # (Auto) 2.7 0.4-5.4 10 ^3/uL Monocytes # (Auto) 0.8 0-1.3 10 ^3/uL Eosinophils # (Auto) 0.1 0-0.8 10 ^3/uL Basophils # (Auto) 0.1 0-0.2 10 ^3/uL Nucleated Red Blood Cells 0.1 % D-Dimer, Quantitative 1.53 H 0.0-0.49 mg/L FEU Blood Gas Specimen Type Arterial Blood Gas Sample Site Right radial Blood Gas Patient Temperature 37.0 Arterial Blood Date Drawn [id number] Arterial Blood pH 7.481 H 7.350-7.450 Arterial Blood Partial Pressure CO2 27.9 L 32.0-45.0 mmHg Arterial Blood Partial Pressure O2 94.1 83.0-108.0 mmHg Arterial Blood HCO3 20.4 L 21.0-28.0 mmol/L Arterial Blood Oxygen Saturation 96.9 94.0-98.0 % Arterial Blood Base Excess -1.6 -2.0-3.0 mmol/L Arterial Blood Oxyhemoglobin 95.1 94.0-98.0 % Arterial Blood Carboxyhemoglobin 1.5 0.5-1.5 % Arterial Blood Methemoglobin 0.4 0.0-1.5 % Seth Test Modified Blood Gas Total Hemoglobin 15.40 12.0-16.0 g/dL Blood Gas Liter Flow 2.00 Blood Gas Modality Nasal cannula FiO2 % 28.0 Sodium Level 139 136-145 mmol/L Potassium Level 4.1 3.5-5.1 mmol/L Chloride Level 106 98-107 mmol/L Carbon Dioxide Level 22 20-31 mmol/L Anion Gap 11 5-15 Blood Urea Nitrogen 14 9-23 mg/dL Creatinine 0.97 0.550-1.02 mg/dL Glomerular Filtration Rate Calc 61 >90 mL/min BUN/Creatinine Ratio 14.4 10.0-20.0 Serum Glucose 97 74-106 mg/dL Calcium Level 9.6 8.7-10.4 mg/dL B-Type Natriuretic Peptide 247.57 0-100 pg/mL Plasma/Serum Blood Alcohol < 3.0 <10 mg/dL CHEST RADIOGRAPH FINDINGS: Lines and Tubes: None Lungs: Clear Pleura: No effusion. No pneumothorax. Cardiomediastinal contours: Unremarkable Bones: Unremarkable IMPRESSION: 1. No acute disease. EXAM: XY L SHOULDER 2+ VIEW XRAY FINDINGS/IMPRESSION: Minimally displaced distal left clavicular fracture. CTA Chest with intravenous contrast FINDINGS: Pulmonary artery: The patient has been scanned with both arms at the patient's side, which causes beam hardening artifact that limits evaluation of the segmental and subsegmental branches of the pulmonary arteries. There is no main or lobar pulmonary embolism. Remaining branches are not evaluated as described Lower neck: Unremarkable thyroid. Lungs: No focal airspace disease. Central airways: Patent. Pleura: No pneumothorax. No pleural effusions. Heart/Vascular Structures: The heart is enlarged. There are coronary artery calcifications. No pericardial effusion. Thoracic aorta is normal in caliber. No aneurysm or dissection. Lymph Nodes: Right hilar lymph node is enlarged measuring 1.7 cm. Left hilar lymph node is enlarged measuring 1.3 cm. Esophagus: Grossly unremarkable. Musculoskeletal: Comminuted left distal clavicle fracture. Elevated distal clavicle compared to the acromion. Soft tissue swelling surrounding the left shoulder. Severe anterior wedge compression deformity status post fixation from T12-L2. Body wall: Unremarkable. Upper abdomen: Unremarkable. IMPRESSION: 1. Limited study due to beam hardening artifact. No main or lobar pulmonary embolism. 2. Cardiomegaly. Coronary artery calcifications. 3. Comminuted acute appearing distal left clavicular fracture offset of the AC joint suspicious for AC joint ligament injury. Regional soft tissue swelling about the left shoulder. Bilateral lower extremity venous duplex Findings: Duplex Doppler evaluation of the deep venous systems of both lower extremities from the common femoral veins to the popliteal veins including color Doppler and spectral/pulsed waveform analysis was performed. RIGHT SIDE: The common femoral vein demonstrates appropriate compressibility and waveform variability. There is compressibility/patency of the great saphenous vein at the proximal thigh. The femoral vein demonstrates appropriate compressibility and waveform variability. The deep femoral vein demonstrates appropriate compressibility and waveform variability. The popliteal vein demonstrates appropriate compressibility and waveform variability. There is normal compressibility at the tibioperoneal trunk. LEFT SIDE: The common femoral vein demonstrates appropriate compressibility and waveform variability. There is compressibility/patency of the great saphenous vein at the proximal thigh. The femoral vein demonstrates appropriate compressibility and waveform variability. The deep femoral vein demonstrates appropriate compressibility and waveform variability. The popliteal vein demonstrates appropriate compressibility and waveform variability. There is normal compressibility at the tibioperoneal trunk. IMPRESSION: 1. No right or left femoropopliteal venous thrombosis. 2. If clinical concern/symptoms persist or worsen, short-interval follow-up study is suggested. Assessment/Plan Assessment/Plan Assessment: Hypoxia, fractured clavicle, Elevated D-dimer, Hypertension, Plan: Admit to Med-Surg, Orthopedic surgery consult, Bilateral lower extremity ultrasound, ABG on room air, Supplemental oxygen as needed, Pain management, Home medications reconciled, Plan discussed with: Patient My Orders Orders - QUANG FRANZ Procedure Category Date Status Time Bilat Lower Dvt US 10/18/24 Resulted 07:14 Atenolol Tablet PHA 10/18/24 In Process (Tenormin Tablet) 10:00 Abg W/ Co-Ox RT 10/18/24 Logged 08:27 Admit ADMIT 10/18/24 Verified 08:08 Code Status CODE 10/18/24 Verified 08:08 2 Gm Sodium Diet DIET 10/18/24 Verified Breakfast Hydrocodone-Acet PHA 10/18/24 Verified 5/325mg Tab (Ferrum 08:15 Ondansetron Hcl PHA 10/18/24 Verified (Zofran) 08:15 Docusate Sodium PHA 10/18/24 Verified Capsule (Colace 08:15 Fall Risk Precautions ANNETTE 10/18/[address] 08:08 Complete Blood Count LAB 10/19/24 Verified 04:00 Comprehensive LAB 10/19/24 Verified Metabolic Panel 04:00 Pt Request For Service PT 10/18/24 Verified 08:08 Condition: Serious ANNETTE 10/18/24 Verified 08:08 Acetaminophen Tablet PHA 10/18/24 Verified (Tylenol Tablet) 08:15 Date of Service: Oct 18, 2024 Billing Provider: QUANG FRANZ Common Visit Codes: [id number] INP/OBS CARE (MOD) QUANG FRANZ Oct 18, 2024 09:44
[2024-10-18 09:56] LABS: Urine Blood Negative /uL (Negative); Urine Clarity Clear (Clear); Urine Color Light-Yellow (Yellow); Urine Protein, UAD Negative (Negative); Urine Specific Gravity 1.024 (1.001-1.035); Urine Squamous Epithelial Cell None Seen /hpf (<5); Urine Urobilinogen Normal (Negative)
[2024-10-18 10:00] LABS: Urine WBC < 1 /HPF (0-5)
[2024-10-18] MEDS ORDERED: ATENOLOL 50 MG PO SCH (10:00)
[2024-10-18 10:05] LABS: Amphetamine Screen, Urine Neg (NEGATIVE); Barbiturate Scree,Urine Neg (NEGATIVE); Benzodiazephine Screen, Urine Neg (NEGATIVE); Cannabinoid Screen, Urine Neg (NEGATIVE); Cocaine Screen, Urine Neg (NEGATIVE); Opiate Scree,Urine Neg (NEGATIVE); Phencyclidine Screen, Urine Neg (NEGATIVE)
[2024-10-18] MEDS: ATENOLOL 25 MG TAB PO SCH (10:24)
[2024-10-18 15:30] VITALS: RESP 18; O2SAT 98
[2024-10-18 16:30] VITALS: BP 171/90; PULSE 61; RESP 20; TEMP 98.3; O2SAT 92
[2024-10-18] MEDS: hydrALAZINE HCL 20 MG/ML VL IV PRN (18:40)
[2024-10-18] MEDS: KETOROLAC TROMETH 30 MG/ML 1ML VIAL IV PRN (18:40)
[2024-10-18] MEDS: amLODIPine BESYLATE 5 MG TAB PO ONE (18:42)
[2024-10-18 20:00] VITALS: PULSE 69; RESP 18; O2SAT 95
--- NOTE | 2024-10-18 20:43 | DVHINCON2 ---
Consult Note Consult Consult Note Reason for Consult: Evaluation and management of left clavicle fracture --- HISTORY OF PRESENT ILLNESS: The patient is a [insert age]-year-old female who presented to the emergency department following a ground-level fall and was subsequently admitted for pain control and evaluation. Orthopedic surgery was consulted for inpatient assessment of a left clavicle fracture diagnosed in the emergency department. The patient complains of localized pain over the left clavicle and denies any other injuries. PAST MEDICAL HISTORY: Hypertension Status post lumbar spine surgery (no complications, doing well) No prior anesthesia issues reported --- PHYSICAL EXAMINATION: General: Alert, cooperative, in mild discomfort due to clavicle pain Left Shoulder/Clavicle: Tenderness to palpation over the distal third of the left clavicle No skin tenting, open wounds, or deformity Neurovascular: Elbow, wrist, and fingers: full range of motion Intact distal sensation Radial pulse 2+ Capillary refill <2 seconds Grossly neurovascularly intact --- IMAGING REVIEW: Left shoulder X-ray was reviewed and confirms a distal one-third left clavicle fracture with mild displacement. No associated dislocation or additional osseous injury identified. --- ASSESSMENT: Displaced distal one-third fracture of the left clavicle No skin or neurovascular compromise Stable for discharge from orthopedic standpoint --- PLAN: Treatment options including operative versus non-operative management were discussed thoroughly with the patient. Patient elected to proceed with operative fixation using a hook plate. Surgery to be scheduled as an outpatient procedure. Orthopedic staff nurse will coordinate and notify the patient of surgical date and time. Pain control and sling immobilization until surgery. Pt has sling on currently. Hospitalist team to evaluate and clear for discharge once medically stable. From an orthopedic standpoint, patient is cleared for discharge. Unless there is a change in her health status, surgery will proceed on an outpatient basis. Return precautions, wound monitoring, and follow-up instructions to be provided at discharge. Plan discussed with: Patient, Other (bedside nurse) Visit Coding Surgery Date of Service if different f: Oct 18, 2024 Billing Provider: SORAIDA NICHOLE Surgery Visit Codes: 32701 - INP CONSULT <55 MIN SORAIDA NICHOLE Oct 18, 2024 20:43
[2024-10-18 21:00] VITALS: BP 128/78; PULSE 69; RESP 18; TEMP 98; O2SAT 95
[2024-10-19] VITALS (7 sets, daily range): BP systolic 115–151; BP diastolic 62–84; PULSE 63–70; RESP 17–20; TEMP 84.5–98.6; O2SAT 92–96
[2024-10-19 07:37] LABS: Basophils # (auto) 0 10 ^3/uL (0-0.2); Basophils % (auto) 0.8 % (0.0-2.0); Eosinophils # (auto) 0.1 10 ^3/uL (0-0.8); Eosinophils % (auto) 2.2 % (0.0-7.0); Hematocrit 38.9 % (36.0-46.0); Hemoglobin 13.6 g/dL (12.2-16.2); Lymphocytes # (auto) 1.7 10 ^3/uL (0.4-5.4); Lymphocytes % (auto) 29.4 % (10.0-50.0); Mean Corpuscular Hemoglobin 34.7 pg (28.0-32.0); Mean Corpuscular Hgb Conc. 34.9 g/dL (32.0-36.0); Mean Corpuscular Volume 99.4 fL (80.0-100.0); Monocytes # (auto) 0.7 10 ^3/uL (0-1.3); Monocytes % (auto) 12.7 % (0.0-12.0); Neutrophils # (auto) 3.1 10 ^3/uL (1.6-8.6); Neutrophils % (auto) 54.9 % (37.0-80.0); Nucleated Red Blood Cells % 0.1 %; Platelet Count (auto) 175 10^3/uL (140-450); Red Blood Cells 3.92 10^6/uL (4.0-5.20); Red Cell Distribution Width 14.6 % (11.8-14.3); White Blood Cell 5.7 10^3/uL (4.4-10.8)
[2024-10-19 07:50] LABS: Alanine Aminotransferase 14 U/L (7-40); Alkaline Phosphatase 50 U/L (46-116); Anion Gap 11 (5-15); BUN/Creatinine Ratio 18.2 (10.0-20.0); Blood Urea Nitrogen 20 mg/dL (9-23); Calcium 9.8 mg/dL (8.7-10.4); Carbon Dioxide 25 mmol/L (20-31); Chloride 106 mmol/L (98-107); Glucose 92 mg/dL (74-106); Sodium 142 mmol/L (136-145); Total Protein 6.9 g/dL (5.7-8.2)
[2024-10-19 07:51] LABS: Potassium 3.4 mmol/L (3.5-5.1)
[2024-10-19 07:52] LABS: Albumin 3.7 g/dL (3.2-4.8); Aspartate Aminotransferase 17 U/L (13-40)
[2024-10-19 07:53] LABS: Bilirubin, Total 1.6 mg/dL (0.2-1.0)
[2024-10-19] MEDS ORDERED: TRAM-626 PO (10:49)
--- NOTE | 2024-10-19 11:05 | DVHDS2 ---
Discharge Summary Date of Admission Oct 18, 2024 at 08:08 Date of Discharge: Oct 19, 2024 Admitting Diagnosis Acute hypoxic respiratory failure Labs/Diagnostic Data: Laboratory Results Test 10/19/24 05:55 10/18/24 09:44 10/18/24 09:00 10/18/24 05:17 White Blood Count 5.7 10^3/uL (4.4-10.8) Red Blood Count 3.92 10^6/uL (4.0-5.20) Hemoglobin 13.6 g/dL (12.2-16.2) Hematocrit 38.9 % (36.0-46.0) Mean Corpuscular Volume 99.4 fL (80.0-100.0) Mean Corpuscular Hemoglobin 34.7 pg (28.0-32.0) Mean Corpuscular Hemoglobin Concent 34.9 g/dL (32.0-36.0) Red Cell Distribution Width 14.6 % (11.8-14.3) Platelet Count 175 10^3/uL (140-450) Mean Platelet Volume 7.8 fL (6.9-10.8) Neutrophils (%) (Auto) 54.9 % (37.0-80.0) Lymphocytes (%) (Auto) 29.4 % (10.0-50.0) Monocytes (%) (Auto) 12.7 % (0.0-12.0) Eosinophils (%) (Auto) 2.2 % (0.0-7.0) Basophils (%) (Auto) 0.8 % (0.0-2.0) Neutrophils # (Auto) 3.1 10 ^3/uL (1.6-8.6) Lymphocytes # (Auto) 1.7 10 ^3/uL (0.4-5.4) Monocytes # (Auto) 0.7 10 ^3/uL (0-1.3) Eosinophils # (Auto) 0.1 10 ^3/uL (0-0.8) Basophils # (Auto) 0 10 ^3/uL (0-0.2) Nucleated Red Blood Cells 0.1 % Sodium Level 142 mmol/L (136-145) Potassium Level 3.4 mmol/L (3.5-5.1) Chloride Level 106 mmol/L (98-107) Carbon Dioxide Level 25 mmol/L (20-31) Anion Gap 11 (5-15) Blood Urea Nitrogen 20 mg/dL (9-23) Creatinine 1.10 mg/dL (0.550-1.02) Glomerular Filtration Rate Calc 52 mL/min (>90) BUN/Creatinine Ratio 18.2 (10.0-20.0) Serum Glucose 92 mg/dL (74-106) Calcium Level 9.8 mg/dL (8.7-10.4) Total Bilirubin 1.6 mg/dL (0.2-1.0) Aspartate Amino Transferase (AST) 17 U/L (13-40) Alanine Aminotransferase (ALT) 14 U/L (7-40) Alkaline Phosphatase 50 U/L (46-116) Total Protein 6.9 g/dL (5.7-8.2) Albumin 3.7 g/dL (3.2-4.8) Blood Gas Specimen Type Arterial Blood Gas Sample Site Right radial Blood Gas Patient Temperature 37.0 Arterial Blood Date Drawn [id number] Arterial Blood pH 7.510 (7.350-7.450) Arterial Blood Partial Pressure CO2 24.4 mmHg (32.0-45.0) Arterial Blood Partial Pressure O2 71.2 mmHg (83.0-108.0) Arterial Blood HCO3 19.0 mmol/L (21.0-28.0) Arterial Blood Oxygen Saturation 93.6 % (94.0-98.0) Arterial Blood Base Excess -2.0 mmol/L (-2.0-3.0) Arterial Blood Oxyhemoglobin 92.0 % (94.0-98.0) Arterial Blood Carboxyhemoglobin 1.2 % (0.5-1.5) Arterial Blood Methemoglobin 0.5 % (0.0-1.5) Seth Test Yes Blood Gas Total Hemoglobin 15.00 g/dL (12.0-16.0) Blood Gas Modality Room air Blood Gas Spontaneous Rate 25 FiO2 % 21.0 Urine Color Light-yellow (Yellow) Urine Clarity Clear (Clear) Urine pH 5.0 (5.0-9.0) Urine Specific [place] 1.024 (1.001-1.035) Urine Protein Negative (Negative) Urine Ketones Negative (Negative) Urine Blood Negative /uL (Negative) Urine Nitrite Negative (Negative) Urine Bilirubin Negative (Negative) Urine Urobilinogen Normal mg/dL (Negative) Urine Leukocyte Esterase Negative /uL (Negative) Urine RBC 1 /hpf (0 - 4) Urine Microscopic WBC < 1 /HPF (0-5) Urine Squamous Epithelial Cells None seen /hpf (<5) Urine Bacteria None seen /hpf (None Seen) Urine Glucose Normal mg/dL (Normal) Urine Opiates Screen Neg (NEGATIVE) Urine Fentanyl Screen Neg (NEGATIVE) Urine Barbiturates Screen Neg (NEGATIVE) Urine Phencyclidine Screen Neg (NEGATIVE) Urine Amphetamines Screen Neg (NEGATIVE) Urine Benzodiazepines Screen Neg (NEGATIVE) Urine Cocaine Screen Neg (NEGATIVE) Urine Cannabinoids Screen Neg (NEGATIVE) Troponin I High Sensitivity 3 ng/L (</=34) Test 10/18/24 02:30 D-Dimer, Quantitative 1.53 mg/L FEU (0.0-0.49) Blood Gas Liter Flow 2.00 B-Type Natriuretic Peptide 247.57 pg/mL (0-100) Plasma/Serum Blood Alcohol < 3.0 mg/dL (<10) Other Laboratory Tests 10/19/24 05:55 Brief Hx & Hospital Course: History of Present Illness Jamison Alexander is a 74-year-old female with past medical history of hypertension, who came to the hospital due to falling out of her bed while asleep. She states she wake up when she hit the floor. She called for her spouse, he helped her off the floor and brought her to the hospital. While in the ER she was found to be hypoxic with an elevated D-dimer. Patient denies cough, or chest pain, does state she gets short of breath with activity. Course of hospitalization: Patient was found to be hypoxic requiring O2 supplementation while in the emergency room. Patient was found to have left clavicular fracture. Orthopedic surgery consultation was placed. At this time no surgical intervention is required. Patient will be placed in and left upper extremity immobilizer. Patient had elevated D-dimer for which patient had CT angiogram of the chest which was negative for any acute pathology as well as DVT study of lower extremities which was negative for any signs of DVT. Patient will be ambulated and weaned off of oxygen. If her oxygen saturation remains greater than 90%, patient can be discharged home. She is instructed to follow up with her PCP and orthopedic surgeon within 1-2 weeks. She will be provided Ultram 50 mg p.o. q.8 hours as needed for [id number] pain not relieved by ghdv-bhz-kaadvel Tylenol. Patient will continue all previous home medications. Patient's family agreeable with discharge plan. All questions answered. Physical examination General: Alert and Oriented x3. No acute distress. Well-nourished. Eyes: EOMI. Anicteric. HENT: Moist mucous membranes. Lungs: Clear to auscultation bilaterally. No accessory muscle use. Cardiovascular: Regular rate and rhythm. No murmur. No JVD. Abdomen: Soft, non-tender and non-distended. No palpable masses. Extremities: No edema. Non-tender. Skin: No rashes or lesions. Warm. Neurologic: No focal neurological deficits. CN II-XII grossly intact, but not individually tested. Psychiatric: Cooperative. Appropriate mood and affect. Total time spent with patient discussing and formulating plan of care: 35 minutes. This medical document was created using an electronic medical record system with Tapp[employer] dictation system. Although this document has been carefully reviewed, there may still be some phonetic and typographical errors. These areas are purely typographical due to imperfections of the software programs, and do not reflect any compromise in the patient's medical care. Consults/Reason for consult Orthopedic Surgeon: Left clavicular fracture Condition at Discharge: Fair Final Diagnosis/Problems List Acute hypoxic respiratory failure Secondary diagnosis: Hypoxia, fractured clavicle, Elevated D-dimer, Hypertension, Discharge Disposition: Home Discharge Instruct/Medications Diet: Cardiac 2g Na,low cholest Activity: See Comment Activity comment: Keep left arm in immobilizer Follow Up/Referral: Follow up with PCP in 1-2 weeks Follow up with Orthopedic surgery in 1-2 weeks Medications: Continue all home medications Tramadol 50 mg p.o. q.8 hours as needed for fxrjdscc-[id number] pain to fracture site 36 Discharge Statement: "Patient was advised to return to the ER or call 911 if any headaches, dizziness, shortness of breath, chest pain, abdominal pain, bleeding, fevers, or worsening of medical condition. Patient was counseled about treatment plan, medications, possible side effects, patientverbalized understanding. All questions were answered to the best of my ability. This discharge took greater then 30 minutes in planning, reviewing documentation, counseling the patient, and discussing with other team members." ASSESSMENT ASSESSMENT Assessment Acute hypoxic respiratory failure Date of Service: Oct 19, 2024 Billing Provider: DIANNA LANCE NP Common Visit Codes: 79262-POT/OBS DISCH DAY >30min DIANNA LANCE NP Oct 19, 2024 11:05
[2024-10-19] MEDS: POTASSIUM EFFERVESENT TAB 25 MEQ PO SCH (11:08)
--- NOTE | 2024-10-19 17:38 | DVHSR ---
APPROVED REPORT EXAM: Two-dimensional and M-mode echocardiogram with Doppler and color Doppler with Bubble Study. Blood Pressure: 133/81 mmHg INDICATION Rule out PH, VSD, ASD RISK FACTORS Height: 62, Weight: 151 DIMENSIONS LVDd3.8 (3.8-5.7cm)LA (2D)4.1 (1.9-4.0cm)Aortic Root3.5 (2.0-3.7cm) LVDs2.5 (2.5-4.0cm)LA (MM) (1.9-4.0cm)Aortic Cusp Exc0.9 (1.5-2.0cm) EF (%) 62.0 (55-70%)Rt. Atrium3.2 (1.9-4.0cm)Asc. Aorta cm Mitral Valve MitralMitral Stenosis E wave0.59m/sMV Mean GR.mmHg A wave0.82m/sMV Peak GR.mmHg E/A ratio0.72D MVAcm2 DECEL [id number] 1/2 Sglg22gn IVRTmsDop MVA3.34cm2 Aortic Valve Aortic ValveAortic Stenosis V11.04m/Lacey Mean GR.5mmHg V21.50m/Lacey Peak GR.9mmHg LVOT Diameter1.8 (1.8-2.4cm)Doppler AVA1.76cm2 Pulmonic Valve V20.82m/s Tricuspid Valve TR Velocity3.08m/s [id number] Other Information Technically limited study due to patient laying flat on her back. BUBBLE STUDY images are at the end of study. Conclusion lvef 60% moderate LVH grade 1 diastolic dysfunction normal rv function left atrium enlarged no severe valve abnormaliteis noted
[2024-10-20] VITALS (8 sets, daily range): BP systolic 126–158; BP diastolic 65–83; PULSE 62–70; RESP 16–17; TEMP 97.9–98.3; O2SAT 94–99
--- NOTE | 2024-10-20 13:09 | DVH ---
Indication: hypoxia Technique: CT axial images of the chest are obtained without contrast. Coronal and sagittal reformats were obtained. Radiation Dose Information: CTDI volume is 15.31 mGy. Dose-length product is 547.85 mGy*cm Comparison: None FINDINGS: Trachea patent. No pneumothorax. No pulmonary airspace consolidation. Pulmonary emphysematous changes . Bilateral atelectasis. Heart normal in size. Coronary artery calcification disease. Pretracheal lymph node measuring 1.7 cm . Left chest wall / axillary region soft tissue edema and stranding. Distal left clavicular fracture, i ncompletely visualized. Bilateral breast calcifications. Cholelithiasis. Cirrhotic morphology liver. Age indeterminate fractures of the left lateral 5th, 6th, 7th ribs. Posterior intrapedicular fixation of the T12, L1, L2 vertebral bodies. Chronic L1 compression deform ity with 90% loss height and 7 mm retropulsion. IMPRESSION: 1. No pulmonary airspace consolidation. 2. Distal left clavicular fracture and left chest/ axillary region soft tissue edema, stranding. This is incompletely visualized on this examination. 3. Atherosclerotic, coronary artery calcification disease. 4. Pretracheal /mediastinum lymphadenopathy. 5. Cirrhotic morphology liver. 6. Cholelithiasis 7. Age indeterminate fractures of the left lateral 5th, 6th, 7th ribs. 8. Other findings as described.
--- NOTE | 2024-10-20 13:17 | DVH ---
CLINICAL INFORMATION: Exertional hypoxia. TECHNIQUE: 4.5 mCi of Xenon-133 gas was used for the ventilation portion of the exam. Posterior vent ilation imaging was obtained. 4.2 mCi of technetium 99m MAA was used for the perfusion portion of the exam. Imaging was obtained in multiple planes of projection. COMPARISON: Chest radiograph dated 10/18/2024. FINDINGS: Perfusion imaging shows no mismatched segmental or subsegmental segmental defects. Ventilation imaging shows no defects. There is normal washout. IMPRESSION: Normal exam. No evidence of pulmonary embolism.
[2024-10-20] MEDS: FUROSEMIDE 20 MG/2 ML VIAL IV ONE (14:16)
--- NOTE | 2024-10-20 14:39 | DVHINCON2 ---
Date of service: Oct 20, 2024 Referring Physician Slava Young NP Reason for Consultation Acute respiratory failure History of Present Illness History Source: Patient Exam Limitations: No limitations HPI Patient is a 74-year old lady with a history of hypertension who presented with left shoulder pain s/p fall out of bed. Was seen in the emergency room where imaging demonstrated fracture of the left clavicle and the patient was admitted for further management. Patient was noted to desaturate to 88% while at rest and was placed on supplemental oxygen. Pulmonology was consulted in view of hypoxemia. Home Meds Active Scripts Tramadol HCl (Tramadol HCl) 50 Mg Tab, 50 MG PO Q8HP PRN for 5 Days, #15 TAB Prov:DIANNA YOUNG NP 10/19/24 Pantoprazole Sodium Sesquihydr (Pantoprazole Sodium) 40 Mg Tab, 40 MG PO DAILY, #60 TAB Prov:RICHARD MATA MD 05/13/22 Hydrocodone-Acetaminophen (Hydrocodone Bitartrate/AC 5-325 mg) 1 Tab Tab, 1 TAB PO Q4HP PRN, #30 TAB Prov:BETH MCKINLEY MD 04/03/22 Atenolol (TENORMIN TABLET) 50 Mg Tb, 50 MG PO BID, #60 TAB 1 Refill Prov:BETH MCKINLEY MD 04/03/22 Reported Medications Diltiazem HCl Extended Release (Tiazac) 300 Mg Cap, 300 MG PO DAILY, CAP 05/09/22 Past Medical History Cardiac: HTN Pulmonary: No pertinent Hx Central Nervous System: No pertinent Hx GI: No pertinent Hx Hemotology/Oncology: No pertinent Hx Hepatobiliary: No pertinent Hx Psychiatric: No pertinent Hx Musculoskeletal: No pertinent Hx Rheumotologic: No pertinent Hx Infectious Disease: No peritnent Hx ENT: No pertinent Hx Renal/: No pertinent Hx Endocrine: No pertinent Hx Dermatology: No pertinent Hx Past Surgical History: No pertinent Hx Family History: Cancer Patient Family History: FH: cancer G8 SISTER Smoker: No Hx (Negative) Alocohol: None Drugs: None Lives with: With family Domestic Violence: Neg Review of Systems Constitutional: No symptom reported Ears, Nose, & Throat: No symptom reported Eyes: No symptom reported Pulmonary/Respiratory: No symptom reported Cardiovascular: No symptom reported Gastrointestinal: No symptom reported Genitourinary: No symptom reported Musculoskeletal: Shoulder pain Skin: No symptom reported Psychiatric: No symptom reported Endocrine: No symptom reported Hemotologic/Lymphatic: No symptom reported H&P Exam Vital Signs Vital Signs Date Time Temp Pulse Resp B/P (MAP) Pulse Ox O2 Delivery O2 Flow Rate FiO2 10/20/24 09:00 97.9 62 16 126/72 (90) 96 97.9 10/20/24 08:00 Nasal Cannula* 2 28 General Appeara: Well developed, Well nourished, Normal Appearance Head Exam: Normal inspection Neck Exam: Normal inspection, Non-tender, Normal alignment Eye Exam: bilateral eye Normal inspection, bilateral eye PERRL, bilateral eye EOMI Ear Exam: bilateral ear Auricle normal, bilateral ear Canal normal, bilateral ear TM normal Nasal Exam: Normal inspection Mouth: Normal Inspection Pulmonary/Respiratory: Normal inspection, Normal breath sounds, Chest non- tender, Lungs clear Cardiovascular/Chest: Normal inspection Peripheral Pulses: 4+ Radial (R), 4+ Radial (L), 4+ Brachial (R), 4+ Brachial (L) Abdominal Exam: Normal bowel sounds Labs/Xrays Labs Test 10/19/24 05:55 10/18/24 09:44 10/18/24 09:00 10/18/24 05:17 Range/Units White Blood Count 5.7 # 4.4-10.8 10^3/uL Red Blood Count 3.92 L 4.0-5.20 10^6/uL Hemoglobin 13.6 12.2-16.2 g/dL Hematocrit 38.9 # 36.0-46.0 % Mean Corpuscular Volume 99.4 80.0-100.0 fL Mean Corpuscular Hemoglobin 34.7 H 28.0-32.0 pg Mean Corpuscular Hemoglobin Concent 34.9 32.0-36.0 g/dL Red Cell Distribution Width 14.6 H 11.8-14.3 % Platelet Count 175 140-450 10^3/uL Mean Platelet Volume 7.8 6.9-10.8 fL Neutrophils (%) (Auto) 54.9 37.0-80.0 % Lymphocytes (%) (Auto) 29.4 10.0-50.0 % Monocytes (%) (Auto) 12.7 H 0.0-12.0 % Eosinophils (%) (Auto) 2.2 0.0-7.0 % Basophils (%) (Auto) 0.8 0.0-2.0 % Neutrophils # (Auto) 3.1 1.6-8.6 10 ^3/uL Lymphocytes # (Auto) 1.7 0.4-5.4 10 ^3/uL Monocytes # (Auto) 0.7 0-1.3 10 ^3/uL Eosinophils # (Auto) 0.1 0-0.8 10 ^3/uL Basophils # (Auto) 0 0-0.2 10 ^3/uL Nucleated Red Blood Cells 0.1 % Sodium Level 142 136-145 mmol/L Potassium Level 3.4 L 3.5-5.1 mmol/L Chloride Level 106 98-107 mmol/L Carbon Dioxide Level 25 20-31 mmol/L Anion Gap 11 5-15 Blood Urea Nitrogen 20 9-23 mg/dL Creatinine 1.10 H 0.550-1.02 mg/dL Glomerular Filtration Rate Calc 52 >90 mL/min BUN/Creatinine Ratio 18.2 10.0-20.0 Serum Glucose 92 74-106 mg/dL Calcium Level 9.8 8.7-10.4 mg/dL Total Bilirubin 1.6 H 0.2-1.0 mg/dL Aspartate Amino Transferase (AST) 17 13-40 U/L Alanine Aminotransferase (ALT) 14 7-40 U/L Alkaline Phosphatase 50 46-116 U/L Total Protein 6.9 5.7-8.2 g/dL Albumin 3.7 3.2-4.8 g/dL Blood Gas Specimen Type Arterial Blood Gas Sample Site Right radial Blood Gas Patient Temperature 37.0 Arterial Blood Date Drawn [id number] Arterial Blood pH 7.510 H 7.350-7.450 Arterial Blood Partial Pressure CO2 24.4 L 32.0-45.0 mmHg Arterial Blood Partial Pressure O2 71.2 L 83.0-108.0 mmHg Arterial Blood HCO3 19.0 L 21.0-28.0 mmol/L Arterial Blood Oxygen Saturation 93.6 L 94.0-98.0 % Arterial Blood Base Excess -2.0 -2.0-3.0 mmol/L Arterial Blood Oxyhemoglobin 92.0 L 94.0-98.0 % Arterial Blood Carboxyhemoglobin 1.2 0.5-1.5 % Arterial Blood Methemoglobin 0.5 0.0-1.5 % Seth Test Yes Blood Gas Total Hemoglobin 15.00 12.0-16.0 g/dL Blood Gas Modality Room air Blood Gas Spontaneous Rate 25 FiO2 % 21.0 Urine Color Light-yellow Yellow Urine Clarity Clear Clear Urine pH 5.0 5.0-9.0 Urine Specific [place] 1.024 1.001-1.035 Urine Protein Negative Negative Urine Ketones Negative Negative Urine Blood Negative Negative /uL Urine Nitrite Negative Negative Urine Bilirubin Negative Negative Urine Urobilinogen Normal Negative mg/dL Urine Leukocyte Esterase Negative Negative /uL Urine RBC 1 0 - 4 /hpf Urine Microscopic WBC < 1 0-5 /HPF Urine Squamous Epithelial Cells None seen <5 /hpf Urine Bacteria None seen None Seen /hpf Urine Glucose Normal Normal mg/dL Urine Opiates Screen Neg NEGATIVE Urine Fentanyl Screen Neg NEGATIVE Urine Barbiturates Screen Neg NEGATIVE Urine Phencyclidine Screen Neg NEGATIVE Urine Amphetamines Screen Neg NEGATIVE Urine Benzodiazepines Screen Neg NEGATIVE Urine Cocaine Screen Neg NEGATIVE Urine Cannabinoids Screen Neg NEGATIVE Troponin I High Sensitivity 3 L </=34 ng/L Test 10/18/24 02:30 Range/Units D-Dimer, Quantitative 1.53 H 0.0-0.49 mg/L FEU Blood Gas Liter Flow 2.00 B-Type Natriuretic Peptide 247.57 0-100 pg/mL Plasma/Serum Blood Alcohol < 3.0 <10 mg/dL Assessment/Plan Plan Impression Acute hypoxemic respiratory failure Pulmonary hypertension Left clavicle fracture Atelectasis Patient seen and examined Events Low oxygen requirements On 2 liters nasal cannula Asymptomatic at rest However patient desaturates upon ambulation Labs and imaging reviewed CTA of the chest shows no evidence of PE Lung parenchyma appears to have ground-glass opacities Dilated pulmonary vessels suggestive of pulmonary hypertension ? Fluid overload Management Supplemental oxygen Titrate to maintain sats 90% or above Incentive spirometry Bronchodilators Diurese Lasix 40mg IV once Monitor renal function Monitor electrolytes Supplement as needed Pain control Avoid oversedation Echo report reviewed Grade 1 diastolic dysfunction RVSP elevated at 57 mmHg, may have idiopathic pulmonary hypertension Obtain CT of the chest without contrast to better characterize lung parenchyma Home oxygen evaluation prior to discharge DVT prophylaxis Plan discussed with: Patient DARLEEN PETTY MD Oct 20, 2024 14:39
--- NOTE | 2024-10-20 15:56 | DVHPN2 ---
Subjective Patient denies any symptoms. Reviewed: Care Plan, H&P, Labs, Medications Changes from previous H/P or p: No Changes General: Per HPI Eyes: No Pain, No Vision change, No Conjunctivae inflammation, No Eyelid inflammation, No Other, No Redness ENT: No Ear pain, No Ear discharge, No Nose pain, No Nose discharge, No Nose congestion, No Mouth pain, No Mouth swelling, No Throat pain, No Throat swelling, No Other Cardiovascular: No Chest Pain, No Palpitations, No Orthopnea, No Paroxysmal Noc. Dyspnea, No Edema, No Lt Headedness, No Other Respiratory: No Cough, No Dry, No Shortness of breath, No SOB with excertion, No Wheezing, No Hemoptysis, No Pleuritic Pain, No Sputum, No Other Gastrointestinal: No Nausea, No Vomiting, No Abdominal Pain, No Diarrhea, No Constipation, No Melena, No Hematochezia, No Other Genitourinary: No Dysuria, No Frequency, No Incontinence, No Hematuria, No Retention, No Other Musculoskeletal: No other, No neck pain, No shoulder pain; arm pain (left arm/shoulder); No back pain, No hand pain, No leg pain, No foot pain Skin: No Rash, No Lesions, No Jaundice, No Bruising, No Other Objective Vitals Vital Signs Date Time Temp Pulse Resp B/P (MAP) Pulse Ox O2 Delivery O2 Flow Rate FiO2 10/20/24 14:16 178/90 10/20/24 09:00 97.9 62 16 96 97.9 10/20/24 08:00 Nasal Cannula* 2 28 Intake/Output Intake and Output 10/20/24 07:00 Intake Total 1450 ml Output Total 1200 ml Balance 250 ml Intake Oral 1450 ml Output Urine Total 1200 ml # Voids 2 General Appearance: Alert, Oriented X3, Cooperative, No acute distress HEENT: Atraumatic, PERRLA Neck: Carotid [place]its [place], Enlarged Thyroid Cardiovascular: Normal S1, Normal S2 Musculoskeletal: Normal sensory function, Normal motor function Neuro: Normal speech Skin: Dry, Intact Psych/Mental Status: Mental status NL, Mood NL Medications Current Medications Medications Dose Ordered Sig/Alessio Route Start Time Stop Time Status Last Admin Dose Admin Patient Own Medication 50 mg BID PO 10/18/24 10:00 UNV Atenolol 50 mg BID PO 10/18/24 10:00 10/20/24 09:00 50 MG Acetaminophen/ Hydrocodone Bitart 1 tab Q4HP PRN PO 10/18/24 08:15 Hold Ondansetron HCl 4 mg Q4HP PRN IV 10/18/24 08:15 Docusate Sodium 100 mg BIDPRN PRN PO 10/18/24 08:15 Acetaminophen 650 mg Q6HP PRN PO 10/18/24 08:15 Ketorolac Tromethamine 15 mg Q6HPRN PRN IV 10/18/24 17:45 10/23/24 17:44 10/20/24 10:41 15 MG Hydralazine HCl 10 mg Q6HP PRN IV 10/18/24 18:00 10/18/24 18:40 10 MG Potassium Bicarbonate 25 meq DAILY PO 10/19/24 10:00 10/20/24 08:59 25 MEQ Laboratory Results Laboratory Tests 10/19/24 05:55 Urinalysis Test 10/18/24 09:00 Urine Color Light-yellow (Yellow) Urine Clarity Clear (Clear) Urine pH 5.0 (5.0-9.0) Urine Specific [place] 1.024 (1.001-1.035) Urine Protein Negative (Negative) Urine Ketones Negative (Negative) Urine Blood Negative /uL (Negative) Urine Nitrite Negative (Negative) Urine Bilirubin Negative (Negative) Urine Urobilinogen Normal mg/dL (Negative) Urine Leukocyte Esterase Negative /uL (Negative) Urine RBC 1 /hpf (0 - 4) Urine Microscopic WBC < 1 /HPF (0-5) Urine Squamous Epithelial Cells None seen /hpf (<5) Urine Bacteria None seen /hpf (None Seen) Urine Glucose Normal mg/dL (Normal) Labs and/or images reviewed: Labs reviewed by me, Image(s) reviewed by me Assessment/Plan Assessment/Plan Impression: -primary hypertension -left rib fractures -clavicular fracture -exertional hypoxia -pulmonary hypertension Plan: -discharge held yesterday secondary to noted hypoxia with ambulation. I myself, ambulate with the patient today, with noted saturation dropping to 70% after ambulating approximately 30 ft. Patient was asymptomatic. Pulmonary consultation was obtained. Repeat CT scan was performed revealing left rib fractures. Echocardiogram performed, revealing pulmonary hypertension with right ventricular systolic pressure at 58 mmHg. Discussed findings with pathology transcriptionist. V/Q scan negative for PE. -pain management -we will assess for possible right heart catheterization if Cardiology is agreeable. Total time spent with patient discussing and formulating plan of care: 35 minutes. This medical document was created using an electronic medical record system with [employer] dictation system. Although this document has been carefully reviewed, there may still be some phonetic and typographical errors. These areas are purely typographical due to imperfections of the software programs, and do not reflect any compromise in the patient's medical care. Plan discussed with: Patient, Other (RN) My Orders Orders - DIANNA LANCE NP Procedure Category Date Status Time *Consult CONS 10/20/24 Transmitted / 09:31 Nm Vq Scan NM 10/20/24 Resulted 09:35 Date of Service: Oct 20, 2024 Billing Provider: DIANNA LANCE NP Common Visit Codes: [id number] INP/OBS CARE(HIGH) DIANNA LANCE NP Oct 20, 2024 15:56
[2024-10-21 01:00] VITALS: BP 146/73; PULSE 76; RESP 17; TEMP 98.5; O2SAT 96
[2024-10-21 05:00] VITALS: BP 149/68; PULSE 60; RESP 18; TEMP 98.3; O2SAT 97
[2024-10-21 08:30] VITALS: BP 131/79; PULSE 57; RESP 17; TEMP 97.7; O2SAT 94
[2024-10-21] MEDS ORDERED: POTASSIUM CHL 20 Meq TABLET PO ONE (09:30)
[2024-10-21] MEDS: ACETAMINOPHEN 325 MG TAB PO PRN (09:44)
[2024-10-21] MEDS ORDERED: ENOXAPARIN SOD 40 MG/0.4 ML SYRINGE SC ONE (09:45)
--- NOTE | 2024-10-21 09:46 | DVHPN2 ---
Progress Note Date Seen: Oct 21, 2024 Resident Creating Document: AMINA MOSER RESIDENT Medical Necessity Reason Pt with a Central, PICC or Fol: No Subjective Review of Systems Patient is 74 years old female with a past medical history of hypertension came to the hospital status post falling out of bed while sleeping. At the ER patient was found to have hypoxic with elevated D-dimer. CXR no acute cardiopulmonary disease, x-ray left shoulder-Minimally displaced distal left clavicular fracture. CT angio of the chest negative for pulmonary embolism, cardiomegaly, coronary calcification. Doppler study of lower extremity negative for DVT. Aggravated revealed LVEF 60%, moderate LVH, grade 1 diastolic dysfunction. Left atrial enlargement. RSVP 54. V/Q scan negative for pulmonary embolism. CT chest- No pulmonary airspace consolidation. Distal left clavicular fracture and left chest/ axillary region soft tissue edema, stranding. This is incompletely visualized on this examination. Atherosclerotic, coronary artery calcification disease. Pretracheal /mediastinum lymphadenopathy.Cirrhotic morphology liver. Cholelithiasis. Age indeterminate fractures of the left lateral 5th, 6th, 7th ribs. Patient was seen today for clinical evaluation. Less than chart reviewed. Patient on [place] O2 . V/Q scan negative for pulmonary embolism. CT chest- No pulmonary airspace consolidation. Distal left clavicular fracture and left chest/ axillary region soft tissue edema, stranding. This is incompletely visualized on this examination. Atherosclerotic, coronary artery calcification disease. Pretracheal /mediastinum lymphadenopathy.Cirrhotic morphology liver. Cholelithiasis. Age indeterminate fractures of the left lateral 5th, 6th, 7th ribs. Objective vital signs Vital Sign Date Time Temp Pulse Resp B/P (MAP) Pulse Ox O2 Delivery O2 Flow Rate FiO2 10/21/24 08:30 97.7 57 17 131/79 (96) 94 97.7 10/20/24 20:00 Nasal Cannula* 2 28 Total Intake and Output 10/20/24 10/20/24 10/21/24 15:00 23:00 07:00 Intake Total 520 ml 700 ml Output Total 900 ml Balance 520 ml -200 ml medications Current Medications Medications Dose Ordered Sig/Alessio Route Start Time Stop Time Status Last Admin Dose Admin Patient Own Medication 50 mg BID PO 10/18/24 10:00 UNV Atenolol 50 mg BID PO 10/18/24 10:00 10/20/24 21:21 50 MG Acetaminophen/ Hydrocodone Bitart 1 tab Q4HP PRN PO 10/18/24 08:15 Hold Ondansetron HCl 4 mg Q4HP PRN IV 10/18/24 08:15 Docusate Sodium 100 mg BIDPRN PRN PO 10/18/24 08:15 Acetaminophen 650 mg Q6HP PRN PO 10/18/24 08:15 Ketorolac Tromethamine 15 mg Q6HPRN PRN IV 10/18/24 17:45 10/23/24 17:44 10/20/24 10:41 15 MG Hydralazine HCl 10 mg Q6HP PRN IV 10/18/24 18:00 10/20/24 17:12 10 MG Potassium Bicarbonate 25 meq DAILY PO 10/19/24 10:00 10/20/24 08:59 25 MEQ laboratory and microbiology Laboratory Tests 10/19/24 05:55 Test 10/19/24 05:55 Range/Units Serum Glucose 92 74-106 mg/dL Problem List/Assessment/Plan Problem List/Assessment/Plan Assessment and plan Hypoxia likely dueto pulmonary hypertension Pretracheal /mediastinum lymphadenopathy Fall, left rib fracture Cirrhosis of liver Cholelithiasis Age indeterminate rib fracture Elevated D-dimer, V/Q scan negative, Doppler study of lower extremity negative Events Patient became hypoxic on titrating down [place] O2 Deny acute chest pain no shortness a breath V/Q scan negative, CT angio chest negative for acute pulmonary embolism CT chest- Pretracheal /mediastinum lymphadenopathy Plan Patient is being discharged home with the home oxygen Please follow up with Pulmonary as outpatient in 2-[address] Perera for further evaluation and care Patient also might need right heart catheterization for further evaluation of pulmonary hypertension Continue [place] O2 as required maintain oxygen saturation> 92% Incentive spirometry Nebulization PRN Cirrhosis of liver-management as per primary care team Cholelithiasis-as per primary team management/outpatient surgery follow up PUD prophylaxis: Pantoprazole DVT prophylaxis: Lovenox Plan discussed with Dr. Perera , nursing staff, Total time spent on patient evaluation, chart review, assessment and plan, discussion discussion >35 minutes Plan discussed with: Patient (RN), Other My Orders My Orders Orders - AMINA MOSER RESIDENT Procedure Category Date Status Time Potassium Er Tablet PHA 10/21/24 Logged (Klor-Con Tablet) 09:30 Date of Service: Oct 21, 2024 Billing Provider: DARLEEN PETTY MD Common Visit Codes: NOT BILLABLE EHSANLAURAMARIE RESIDENT Oct 21, 2024 09:46 DARLEEN PETTY MD Oct 22, 2024 14:49
[2024-10-21 10:38] LABS: Base Excess 1.7 mmol/L (-2.0-3.0)
[2024-10-21 12:47] VITALS: BP 115/68; PULSE 65; RESP 18; TEMP 96.6; O2SAT 95
[2024-10-21] MEDS: PANTOPRAZOLE 40 MG TAB PO ONE (14:36)
[2024-10-21] MEDS: ENOXAPARIN SOD 40 MG/0.4 ML SYRINGE SC SCH (14:36)
[2024-10-21 17:07] VITALS: BP 125/61; PULSE 55; RESP 18; TEMP 97.3; O2SAT 95
[2024-10-22] MEDS ORDERED: PANTOPRAZOLE 40 MG TAB PO SCH (06:00)
== END 2024-10-21 19:25 | disposition home or self-care (01) | DRG 562 ==
LOC: ER 01:53 → OVERFLOW 08:08 → CENTRAL 15:30
PROVIDERS: ADMIT Nurse Practitioner Acute Care; ATTEND Nurse Practitioner Acute Care
DX: S42.032A Displaced fracture of lateral end of left clavicle, initial encounter for closed fracture (principal); J96.01 Acute respiratory failure with hypoxia; S22.42XA Multiple fractures of ribs, left side, initial encounter for closed fracture; E87.3 Alkalosis; J98.11 Atelectasis; I10 Essential (primary) hypertension; I27.20 Pulmonary hypertension, unspecified; K74.60 Unspecified cirrhosis of liver; K80.20 Calculus of gallbladder without cholecystitis without obstruction; K21.9 Gastro-esophageal reflux disease without esophagitis; Z88.5 Allergy status to narcotic agent; Z79.899 Other long term (current) drug therapy; W06.XXXA Fall from bed, initial encounter; Y93.89 Activity, other specified; Y92.89 Other specified places as the place of occurrence of the external cause; Y99.8 Other external cause status
CPT/HCPCS: 36415; 36600; 71045; 71250; 71275; 73030; 78582; 80048; 80053; 80307; 80320; 81001; 82805; 83880; 84484; 85025; 85379; 93005; 93306; 93970; 94640; 96361; 96374; 96375; 97163; G0378; J1885